=== PATIENT | female | born 1950 | race Caucasian/White ===

== ENCOUNTER → 2017-11-12 | Outpatient (CLI) | payer MEDICARE, OTHER ==
[~2017-11-12] MED LIST: ACYC5CRE5 TOP; ALBU8.5H IH; AMLO2.5T75 PO; AMOX125T10 PO; AMOX875T60 PO; AUG875 PO; BIS5 PO; BRIM5DRO7 OP; CA C1TAB85 PO; CALC-649 PO; CALC500T42 PO; CETI-169 PO; CETI10CA8 PO; CETI1TAB75 PO; CHOL100060 PO; CHOL500062; CLOB15CR22 TP; CYAN25005 SL; CYCL1DRO6 OP; EPIN0.3P15 IM; ESTR0.4513 PO; FEXO1TAB63 PO; FLAX100042 PO; FLUOD OP; FLUT16SP19 NS; GLUC500C29 PO; GLUC750T10 PO; GOLYTE PO; GUAI1TBM PO; LACT1CAP50 PO; LACT1CAP9 PO; LANS15CA38 PO; LANS30CA70 PO; LEVO137T23 PO; LEVO150T78 PO; LOR7.5/325 PO; MAGN400C PO; MECL12.5 PO; MEP50 PO; MEPE50TA29 PO; MET10 PO; MET500 PO; METR45GE7 TP; METXL50 PO; MOMR; MONT10TA PO; MULT-770 PO; MULT-820 PO; NASACORT; NASOCORT; OLO2ODPT OD; OMEG-11 PO; OMEG100032 PO; OND4 PO; ONDA4TAB PO; OXY10 PO; PER PO; PIRO-1 PO; POTA99TA13 PO; PREG150C34 PO; PRO25 PO; SITA100T PO; TACR30OI TP; TOBROD OD; TRIA15OI20 TP; UBID100C9 PO; VAL500 PO; VALS160T20 PO; VALS1TAB96 PO; [UNRECOGNIZED DRUG - CODE] OP; [UNRECOGNIZED DRUG - CODE] OP; [UNRECOGNIZED DRUG - CODE] OU
--- NOTE | 2017-11-16 16:38 | RADIOLOGY IMAGING REPORT ---
FACILITY: [facility] PATIENT NAME: THAI TREVIÑO : [id number] MR: [id number] V: [id number] EXAM DATE: [id number] ORDERING PHYSICIAN: HERO MONROY TECHNOLOGIST: Kathy Green PROCEDURE:BILATERAL DIGITAL SCREENING MAMMOGRAM WITH CAD ASSISTED INTERPRETATION AND 3D BREAST TOMOSYNTHESIS. COMPARISON:Prior mammograms dated 11/11/16, 10/11/15, 08/31/14, 08/25/13 and 08/07/11. INDICATIONS:SCREENING FINDINGS: A small amount of fibroglandular tissue is seen throughout the breasts. The parenchymal pattern has remained stable when allowing for difference in mammographic technique and patient positioning. There is no evidence of malignant appearing mass, malignant appearing calcification or other secondary sign of malignancy in either breast. DIAGNOSTIC CATEGORY 1--NEGATIVE. RECOMMENDATIONS: ROUTINE MAMMOGRAM AND CLINICAL EVALUATION. IMPRESSION: Bi-RADS 1: No significant abnormality is seen. Images were reviewed with R2CAD and 3D breast tomosynthesis. Dictated by: Selena Jimenez M.D. on 11/12/2017 at 11:27 Transcribed by: HELEN on 11/12/2017 at 16:25 Approved by: Selena Jimenez M.D. on 11/16/2017 at 16:37 [facility]
== END ==
LOC: MAMO 02:48
PROVIDERS: ATTEND Family Medicine
DX: Z12.31 Encounter for screening mammogram for malignant neoplasm of breast (principal)
CPT/HCPCS: 77063; G0202; 77067

== ENCOUNTER 2017-11-29 15:15 | Outpatient (RCR) | payer MEDICARE, OTHER ==
--- NOTE | 2017-11-26 07:46 | PT INITIAL EVALUATION ---
MEDICAL DIAGNOSIS: Vertigo TREATMENT DIAGNOSIS: Vertigo DATE OF ONSET: 11/20/16 SUBJECTIVE: Christine is a 67 year-old female presenting to physical therapy following recent onset of vertigo which started when she was receiving a massage on Wednesday11/20/17. Pt reports that since she has had both nausea and vertigo that is fairly severe and will sometimes prevent her from getting out of bed. Vertigo is worse with rising from supine, rolling over in bed to the right side typically, and bending forward. Vertigo is typically also worse in the mornings. Pt is currently taking Zofran for nausea. 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 REHAB PROBLEM LIST: Impaired Bed Mobility Impaired Transfers Decreased Endurance Decreased Balance Decreased Function Decreased ADL's Decreased Mobility Decreased Gait PREVIOUS MEDICAL HISTORY: See EMR OCCUPATION: Retired OBJECTIVE: Posture: Pt has forward hunched posture with increased thoracic kyphosis and forward head. ROM: Dizziness with all cervical movement and nausea. Sensation: Facial nerves intact to light touch. Special Tests: Vertebral artery test (-) B. Dizziness handicap inventory (DHI) Score: 70/100 Gait: Pt uses furniture for stability with ambulation. Balance: Gaze stabilization lateral & A/P increased dizziness. A/P>lateral Hilario Hallpike R (-) but with high vertigo on return from position and associated nausea that no other testing could be performed in session. Further testing to be resumed at follow-up. Other Objective Findings: Pt has a small resting nystagmus and has nystagmus present from return from L lateral tracking. ASSESSMENT: Christine shows signs and symptoms consistent with vertigo with a positional component, likely BPPV, of an undetermined origin. Secondary to high patient irritability full examination was not performed though any vascular contribution or central lesions have been ruled out at this time. Short Term Goals In 2 weeks Christine will have no symptoms of dizziness with change in position upon rising in the morning for improved function with ADL's. In 3 weeks pt will increase DHI to <25/100 for improved functional ambulation and mobility with ADL's. Patient's Goals Decrease dizziness and nausea PLAN: Patient to be seen for Manual Therapy/STM/MET Range of Motion Spinal Stabilization Stretching Neuromuscular Re-ed Posture/Body mechanics Gait Trg/Balance Trg Home Exercise Program Therapeutic Activities 3x/Week for 2 Weeks If you have any questions, comments, or concerns about this report or plan, please contact me at . Thank you, Rika Lopez, PT, DPT, CLT MARIAHD
--- NOTE | 2017-11-30 14:30 | PT PLAN OF CARE ---
Physician: Jennifer Hebert DO Patient is being seen: 2-3x/week Therapist: Rika Lopez PT, DPT and Torin Cedillo PT, DPT Medical Diagnosis: Vertigo Treatment Diagnosis: Vertigo Date of Onset: 11/20/16 Date of Initial Evaluation: 11/24/17 Date patient was last seen: 11/29/17 Number of treatments: 3 Number of cancellations/No shows: 0 INTERVENTIONS: Manual Therapy/STM/MET Range of Motion Spinal Stabilization Stretching Neuromuscular Re-ed Posture/Body mechanics Gait Trg/Balance Trg Home Exercise Program Therapeutic Activities GOALS: In 2 weeks Christine will have no symptoms of dizziness with change in position upon rising in the morning for improved function with ADL's. MET In 3 weeks pt will increase DHI to <25/100 for improved functional ambulation and mobility with ADL's. MET PATIENT'S GOAL: Decrease dizziness and nausea Status of Patient's Goals: MET Patient Compliance: Excellent Prognosis: Good Reasons for discontinuing therapy: This is a discharge note for Christine Waddell. She reports that she is doing really well. She reports that she has not felt any vertigo type symptoms since Wednesday. She states that she continues to perform her HEP once per day with no vertigo like symptoms. She reports that she continues to be cautious with her functional activities, however, she denies any vertigo like symptoms with her functional activities. She demonstrated the following improvements: no signs or symptoms with anterior, posterior, or horizontal canals with the specific maneuvers, return to prior level of function, and reduction of dizziness handicap from 70/100 to 10/100. She is independent on her HEP. She has met all of her goals. As a result, she will be discharged from PT to [facility]. Posture: Pt has forward hunched posture with increased thoracic kyphosis and forward head. ROM: No Dizziness with all cervical movement and nausea. anterior, posterior, and horizontal canals: clear Special Tests: Vertebral artery test (-) B. Dizziness handicap inventory (DHI) Score: 10/100 If you have any questions, please contact us at [phone]. Thank you, Torin Cedillo, PT, DPT [facility]
== END 2017-11-29 18:00 | disposition home or self-care (01) ==
LOC: PT 15:15
PROVIDERS: ATTEND Family Medicine
DX: H81.10 Benign paroxysmal vertigo, unspecified ear (principal); R11.10 Vomiting, unspecified
CPT/HCPCS: 97162

== ENCOUNTER → 2018-01-20 | Outpatient (CLI) | payer MEDICARE, OTHER ==
--- NOTE | 2018-01-20 12:17 | RADIOLOGY IMAGING REPORT ---
FACILITY: [facility] [place] PATIENT NAME: Christine Waddell : 1950 MR: [id number] V: [id number] EXAM DATE: ORDERING PHYSICIAN: HERO MONROY TECHNOLOGIST: Location: [facility] [place] Patient: Christine Waddell : 1950 Visit/Account:[id number] Date of Sevice: 01/20/2018 Exam type: CHEST PA AND LAT History: Cough, difficulty breathing x1 day Comparison: January 27, 2016. Findings: The lungs are free of acute effusions, infiltrates or edema. There is no evidence of a pneumothorax or pneumomediastinum. The cardiac silhouette is normal in size. The trachea is in midline. There i s a gentle S-shaped scoliosis of the thoracolumbar spine. There are surgical clips in right upper qu adrant of abdomen IMPRESSION: 1. No acute cardiopulmonary process is seen Report Dictated By: Selena Jimenez MD at 01/20/2018 12:11 PM Report E-Signed By: Selena Jimenez MD at 01/20/2018 12:13 PM WSN:[email or web address]
== END ==
LOC: RAD 11:40
PROVIDERS: ATTEND Family Medicine
DX: J40 Bronchitis, not specified as acute or chronic (principal)
CPT/HCPCS: 71046

== ENCOUNTER → 2018-03-24 | Outpatient (CLI) | payer MEDICARE, OTHER ==
--- NOTE | 2018-03-24 09:18 | RADIOLOGY IMAGING REPORT ---
FACILITY: [facility] [place] PATIENT NAME: Christine Waddell : 1950 MR: [id number] V: [id number] EXAM DATE: ORDERING PHYSICIAN: JEFFERSON ROJAS TECHNOLOGIST: Location: [facility] [place] Patient: Christine Waddell : 1950 Visit/Account:[id number] Date of Sevice: 03/24/2018 EXAMINATION: MRI Lumbar spine without intravenous contrast HISTORY: Left hip pain. COMPARISON: Lumbar spine TECHNIQUE: Multi-planar, multi-sequence lumbar spine MRI was performed without intravenous contrast administration. FINDINGS: Alignment: Moderate convex leftward curvature. Straightening of the normal lordosis. 3 to 4 mm of ret rolisthesis of L4 over L5. Vertebral marrow signal: Intraosseous hemangioma in the T11 vertebral body. Multiple small Schmorl's nodes and degenerative endplate fatty marrow changes at a few levels. No bone marrow edema. Distal thoracic cord: Negative. Conus: negative, terminates at L1-L2 Cauda equina: Small Tarlov cyst at S2-S3. Otherwise negative. Paravertebral soft tissues: Negative. Visualized abdominal and pelvic structures: Negative. Disc Spaces: Lower thoracic spine: Negative. L1-2: Mild to moderate disc height loss with circumferential disc bulge, facet hypertrophy, and ligam entum flavum thickening. Mild spinal canal stenosis. Mild right and moderate left neural foraminal st enosis. Slightly worsened compared with 07/20/2014. L2-3: Moderate to severe disc height loss with circumferential disc bulge, right greater than left fa cet hypertrophy, and mild ligamentum flavum thickening. Mild spinal canal stenosis. Mild to moderate bilateral neural foraminal stenosis. No significant change. L3-4: Asymmetric right-sided disc height loss and disc bulge. Right greater than left facet hypertrop hy and ligamentum flavum thickening. Moderate spinal canal stenosis. Mild left and moderate to severe right neural foraminal stenosis. No significant change. L4-5: Interval laminectomy. Mild disc height loss with circumferential disc bulge. Severe facet hyper trophy. Mild to moderate spinal canal stenosis. Moderate right and moderately severe left neural fora kleber stenosis. Compared with 07/20/2014 there is a new laminectomy with decreased spinal canal stenosi s and removal of the intraspinal synovial cyst. Neural foraminal stenosis may be slightly worsened on the left. Otherwise no significant change. L5-S1: Mild asymmetric left-sided disc height loss and disc bulge. Severe left and mild right facet h ypertrophy. No significant spinal canal or right neural foraminal stenosis. Moderately severe left ne ural foraminal stenosis. No significant change. IMPRESSION: 1. Multilevel degenerative disc disease and facet hypertrophy with multiple alignment abnormalities a nd multilevel stenosis. 2. Compared with 07/20/2014 there is a new laminectomy at L4-L5 with decreased spinal canal stenosis. N eural foraminal stenosis may be slightly worsened on the left at L4-L5. Degenerative changes at L1-L2 are slightly worsened. 3. Otherwise no significant interval change. Report Dictated By: Will Montanez MD at 03/24/2018 8:58 AM Report E-Signed By: Will Montanez MD at 03/24/2018 9:13 AM WSN:[email or web address]
== END ==
LOC: MRI 07:10
PROVIDERS: ATTEND Neurological Surgery
DX: M47.896 Other spondylosis, lumbar region (principal)
CPT/HCPCS: 72148

== ENCOUNTER → 2018-04-12 | Outpatient (CLI) | payer MEDICARE, OTHER ==
[~2018-04-12] MED LIST changes: +BUPIVACAINE MPF INFIL ONE; +TRIAMCINOLONE ACE 40 MG/ML VL INJ ONE
--- NOTE | 2018-04-12 17:05 | RADIOLOGY IMAGING REPORT ---
FACILITY: [facility] PATIENT NAME: Christine Waddell : 1950 MR: [id number] V: [id number] EXAM DATE: ORDERING PHYSICIAN: FIDEL FLOR TECHNOLOGIST: Location: [facility] Patient: Christine Wdadell : 1950 Visit/Account:[id number] Date of Sevice: 04/12/2018 Exam type: HIP INJECTION PAIN LEFT History: Pain in left hip x2 years, getting worse Comparison: None. Findings: Informed consent was obtained. The patient's left hip was prepped and draped in usual sterile fashio n. Local anesthesia was accomplished with 1% lidocaine. Under fluoroscopic guidance a 22-gauge spin al needle was advanced percutaneously into the anterior aspect of the left hip joint. Several cc of Isovue-200 were injected into the anterior aspect the left hip joint to document intra-articular need le placement. 2 mL of Xylocaine without epinephrine, 2 mL of 0.5% bupivacaine ( preservative-free), and 1.5 mL of Kenalog were then injected into the left hip joint. The procedure was accomplished wit hout apparent complication. The fluoroscopy dose area product was 966.68 micro-Pearson per meter square d IMPRESSION: 1. Successful fluoroscopically guided left hip injection for pain Report Dictated By: Selena Jimenez MD at 04/12/2018 4:57 PM Report E-Signed By: Selena Jimenez MD at 04/12/2018 5:01 PM WSN:[email or web address]
== END ==
LOC: RAD 02:07
PROVIDERS: ATTEND Orthopaedic Surgery
DX: M25.552 Pain in left hip (principal)
CPT/HCPCS: 20610; 77002

== ENCOUNTER → 2018-06-30 | Outpatient (CLI) | payer MEDICARE, OTHER ==
[~2018-06-30] MED LIST changes: +ACET-1862 PO; -BUPIVACAINE MPF INFIL ONE; +ESTR42.5 PV; +POTA99TA6 PO; -TRIAMCINOLONE ACE 40 MG/ML VL INJ ONE
[2018-06-30 08:04] LABS: PLATELET COUNT, AUTOMATED 225 K/uL (150-450)
[2018-06-30 08:35] LABS: LDL CHOLESTEROL 99 mg/dl
== END ==
LOC: LAB 07:40
PROVIDERS: ATTEND Family Medicine
DX: M25.559 Pain in unspecified hip (principal); I10 Essential (primary) hypertension; E87.5 Hyperkalemia; E03.9 Hypothyroidism, unspecified; E11.65 Type 2 diabetes mellitus with hyperglycemia
CPT/HCPCS: 36415; 82040; 82043; 82247; 82310; 82374; 82435; 82465; 82565; 82947; 83036; 83718; 84075; 84132; 84155; 84295; 84443; 84450; 84460; 84478; 84520; 85025

== ENCOUNTER → 2018-07-11 | Outpatient (CLI) | payer MEDICARE, OTHER ==
--- NOTE | 2018-07-11 14:49 | EKG ---
FACILITY: [facility] [place] PATIENT NAME: THAI TREVIÑO : [id number] MR: [id number] V: [id number] EXAM DATE: ORDERING PHYSICIAN: HERO MONROY TECHNOLOGIST: RUBI Test Reason : PRE OP Blood Pressure : / mmHG Vent. Rate : 063 BPM Atrial Rate : 063 BPM P-R Int : 204 ms QRS Dur : 128 ms QT Int : 444 ms P-R-T Axes : 030 -57 050 degrees QTc Int : 454 ms Normal sinus rhythm Left anterior fasicular block Abnormal ECG When compared with ECG of 27-JAN-2016 20:16, No significant change was found Confirmed by Jose Espinoza ([id number]) on 07/11/2018 3:46:12 PM Referred By: PORFIRIO Confirmed By:Jose Rico
== END ==
LOC: LAB 14:15
PROVIDERS: ATTEND Family Medicine
DX: M25.552 Pain in left hip (principal); Z01.818 Encounter for other preprocedural examination
CPT/HCPCS: 81001; 87088; 93005

== ENCOUNTER 2018-08-09 00:43 | Inpatient (IN) | payer MEDICARE, OTHER ==
[2018-08-08 15:05] LABS: INR 0.99
[2018-08-09] VITALS (11 sets, daily range): BP systolic 103–145; BP diastolic 60–79
[~2018-08-09] VITALS: Ht 170.2 cm; Wt 114.3 kg
[~2018-08-09 00:43] MED LIST changes: +LEVO150T72 PO; +LORA-629 PO; +LOSA100T69 PO; +METO-235 PO; +SODI1PAC44 NS
[2018-08-09] MEDS: CELECOXIB 200 MG CAP PO ONE ×2 (06:19→07:01)
[2018-08-09] MEDS ORDERED: NORMOSOL R SOLN(*) 1000 ML BAG 1,000 ML IV PRN ×2 (07:30→10:40)
[2018-08-09] MEDS ORDERED: LIDOCAINE/SOD BICARB 8.4% SYR ID ONE (07:30)
[2018-08-09] MEDS ORDERED: MIDAZOLAM 2 MG/2 ML VIAL IVP PRN (07:30)
[2018-08-09] MEDS ORDERED: ceFAZolin(*) 2GM/D5W 50ML 50 ML IVPB ONE (07:30)
[2018-08-09] MEDS ORDERED: TRANEXAMIC AC 1000 MG/10ML SDV 1,000 MG in DEXTROSE 5% 50 ML BAG 50 ML IV ONE (07:30)
[2018-08-09] MEDS ORDERED: ACETAMINOPHEN 500 MG TAB PO ONE (07:30)
[2018-08-09] MEDS ORDERED: PREGABALIN 150 MG CAPSULE PO ONE (07:30)
[2018-08-09] MEDS ORDERED: cloNIDine EPIDUR INJ 100MCG/ML 40 MCG, ROPIVACAINE 0.5% 20 ML VIAL 25 ML, EPINEPHrine H... INJ ONE (07:30)
[2018-08-09] MEDS ORDERED: PROPOFOL EMUL(*) 10MG/ML 20 ML 80 ML ONE (07:51)
[2018-08-09] MEDS ORDERED: fentaNYL CITR 100 MCG/2 ML AMP ONE ×3 (07:51→12:18)
[2018-08-09] MEDS ORDERED: LIDOCAINE 2% IV 100 MG/5ML SYR ONE (07:54)
--- NOTE | 2018-08-09 08:11 | LEVENE H&P ---
DATE OF ADMISSION: August 09, 2018 IDENTIFICATION/CHIEF COMPLAINT The patient is a 68-year-old woman with a chief complaint of left hip pain. HISTORY OF PRESENT ILLNESS The patient has a longstanding history of hip arthritis progressively painful and debilitating, refractory to conservative care. Surgery is indicated to relieve symptoms after failure of nonoperative measures. PAST MEDICAL HISTORY 1. Hypertension, controlled on medication. 2. Sleep apnea, controlled with CPAP. 3. Type 2 diabetes. PAST SURGICAL HISTORY 1. Partial thyroidectomy. 2. Right knee scope. 3. Pneumonia. 4. Hospitalization. 5. Bladder repair. 6. Hemorrhage from hysterectomy. 7. Cholecystectomy. 8. Rib removed. 9. Foot operation. 10. Cartilage removal from the right knee. ALLERGIES MORPHINE, NEXIUM and CHLORINE BLEACH. CURRENT MEDICATIONS 1. Amlodipine 2.5 mg p.o. every day. 2. Metformin 500 mg x5 pills daily. 3. Meclizine 12.5 mg as needed. 4. Lyrica 150 mg p.o. every day. 5. Januvia 100 mg p.o. every day. 6. Losartan 100 mg p.o. every day. 7. Prevacid 30 mg p.o. every day. 8. Synthroid 150 micrograms p.o. every day. SOCIAL HISTORY Negative for tobacco. She smoked until 1996, about 20 years pack/day. She denies alcohol use or abuse. REVIEW OF SYSTEMS Noncontributory. PHYSICAL EXAMINATION GENERAL: This is a healthy female. HEENT: Normocephalic, atraumatic. NECK: Supple. LUNGS: Clear. HEART: Regular. ABDOMEN: Soft. ORTHOPEDIC EXAMINATION Left hip is very stiff with limits if flexion and rotation. Hip girdle strength is normal. Skin envelope is intact. Calves are nontender. Neurovascular function is intact. Radiographs demonstrate end-stage hip arthritis. ASSESSMENT Left hip end-stage degenerative joint disease (DJD) progressively painful and debilitating, refractory to conservative care. PLAN Per patient request, we are going to proceed with total hip arthroplasty. The nature of this procedure, the risks, benefits, the anticipated rehabilitative course were reviewed. Risks of the procedure include but are not limited to , major medical or anesthetic complication, infection, neurovascular injury, blood transfusion, stiffness, scarring, tendon rupture, instability, leg length discrepancy, implant loosening, migration or failure, persistent or recurrent pain, need for additional surgery and other unforeseen. She understands and wishes to proceed. A signed permit is placed in the chart. No guarantees are given or implied. PATI
[2018-08-09] MEDS ORDERED: ONDANSETRON 4 MG/2 ML VIAL ONE (08:25)
[2018-08-09] MEDS ORDERED: DEXAMETHASONE SOD PHOS 10MG/ML ONE (08:25)
[2018-08-09] MEDS ORDERED: KETAMINE HCL 200 MG/20 ML MDV ONE (09:01)
[2018-08-09] MEDS ORDERED: PROPOFOL EMUL(*) 10MG/ML 20 ML 40 ML ONE ×2 (09:06→09:35)
[2018-08-09] MEDS ORDERED: LACTATED RINGER 3000 ML BAG IR ONE (09:32)
[2018-08-09] MEDS ORDERED: NS 0.9% IRRIGATION 1000ML PLCT IR ONE (09:32)
[2018-08-09] MEDS ORDERED: VANCOMYCIN 1 GM VIAL ONE (09:45)
[2018-08-09] MEDS ORDERED: ACETAMINOPHEN 325 MG TAB PO PRN (10:40)
[2018-08-09] MEDS ORDERED: ZOLPIDEM TARTRATE 5 MG TAB PO PRN (10:40)
[2018-08-09] MEDS ORDERED: diphenhydrAMINE 50 MG/ML VIAL IVP PRN (10:40)
[2018-08-09] MEDS ORDERED: FLUSH 10 ML SYR IVP PRN (10:40)
[2018-08-09] MEDS ORDERED: BISACODYL 10 MG SUPP PR PRN (10:40)
[2018-08-09] MEDS ORDERED: diphenhydrAMINE 25 MG CAP PO PRN (10:40)
[2018-08-09] MEDS ORDERED: BENZOCAINE/MENTHOL 1 EACH LOZG PO PRN (10:40)
[2018-08-09] MEDS ORDERED: MAGNESIUM HYDROXIDE* 30ML UDCP PO PRN (10:40)
--- NOTE | 2018-08-09 11:22 | RADIOLOGY IMAGING REPORT ---
FACILITY: [facility] PATIENT NAME: Christine Waddell : 1950 MR: [id number] V: [id number] EXAM DATE: ORDERING PHYSICIAN: MAURISIO MARTIN TECHNOLOGIST: Location: [facility] [place] Patient: Christine Waddell : 1950 Visit/Account:[id number] Date of Sevice: 08/09/2018 PELVIS History: Left hip replacement. Comparison study: None. Findings: There is diffuse osteopenia but no acute fracture. There has been a recent left hip replacement. IMPRESSION: 1. Status post recent left hip replacement. No findings of a fracture. Report Dictated By: Kaleb Sams MD at 08/09/2018 11:17 AM Report E-Signed By: Kaleb Sams MD at 08/09/2018 11:18 AM WSN:[email or web address]
[2018-08-09] MEDS ORDERED: NORMOSOL R SOLN(*) 1000 ML BAG 1,000 ML IV ONE (11:25)
--- NOTE | 2018-08-09 13:43 | Hospitalist Consultation ---
History of Present Illness Requesting Physician Dr. Hernandez Reason for Consult Medical Management Chief Complaint s/p left hip replacement History of Present Illness She was admitted s/p left hip replacement. It is reported the surgery went well and without complication. History Problems: (1) KARLEY (obstructive sleep apnea) Status: Chronic (2) Type 2 diabetes mellitus Status: Chronic (3) Seasonal allergies Status: Chronic (4) Hypothyroidism Status: Chronic (5) GERD (gastroesophageal reflux disease) Status: Chronic (6) Hypertension Status: Chronic Home Meds Active Scripts Estrogens, Conjugated (Premarin) 0.625 Mg/Gram Cream.appl, 0.5 GM PV DIRECTED for 30 Days, #1 TUBE 6 Refills Apply 0.5gm PV QHS twice weekly Prov:ALEXIS TORRES MD 08/02/18 Reported Medications Sodium Chloride/Sodium Bicarb (NEMetaversum SINUS RINSE KIT) 1 Each Packet, 1 EACH NS 2XW, PACKET 08/02/18 Losartan Potassium (LOSARTAN POTASSIUM) 100 Mg Tablet, 100 MG PO QDAY 08/02/18 Metoprolol Succinate (TOPROL XL) 100 Mg Tab.er.24h, 1 TAB PO QDAY, TAB 08/02/18 Levothyroxine Sodium (SYNTHROID) 150 Mcg Tablet, 150 MCG PO QDAY 08/02/18 Loratadine (LORATADINE) 10 Mg Tablet, 10 MG PO DAILY 08/02/18 Acetaminophen (ARTHRITIS PAIN RELIEVER) 650 Mg Tablet.er, 2 TAB PO BID 05/16/18 Lactobacillus Combo No.10 (PROBIOTIC) 1 Each Capsule, 1 EACH PO DAILY, CAPSULE 10/14/17 Ketotifen Fumarate (ALAWAY) 10 Ml Drops, 1 DROP OP DAILY 10/14/17 Montelukast Sodium (SINGULAIR) 10 Mg Tablet, 1 TAB PO QDAY, TAB 10/14/17 Fluorometholone (FLUOROMETHOLONE) 5 Ml Drops.susp, 5 ML OP TID 10/14/17 Clobetasol Propionate/Emoll (CLOBETASOL EMOLLIENT 0.05% CRM) 15 Gm Cream..g., 0 TP BID 10/14/17 Cyclosporine (RESTASIS) 1 Each Droperette, 1 EACH OP BID 09/24/16 Sitagliptin Phosphate (JANUVIA) 100 Mg Tablet, 100 MG PO QDAY 09/24/16 Amlodipine Besylate (NORVASC) 2.5 Mg Tablet, 1 TAB PO QDAY, TAB 08/28/16 Meclizine Hcl (MECLIZINE HCL) 12.5 Mg Tablet, 12.5 MG PO PRN PRN for NAUSEA 08/28/16 Epinephrine (EPIPEN 2-WOLFGANG) Unknown Strength Pen.injctr, 0.3 MG IM PRN 08/28/16 Ondansetron Hcl (Zofran) 4 Mg Tab, 4 MG PO Q6-8H PRN for NAUSEA, #24 1 Refill 11/12/11 Mometasone Furoate (Nasonex) 17 Gm [place], 0 NA QODAY, 0 Refills SPRAY 2 SPRAYS IN EACH NOSTRIL 11/06/11 Lansoprazole (Prevacid) 30 Mg Capsule.dr, 30 MG PO QDAY, 0 Refills 11/06/11 Metformin Hcl (Glucophage) 500 Mg Tab, 500 MG PO 5XD, 0 Refills 11/06/11 Pregabalin (Lyrica) 150 Mg Capsule, 150 MG PO QHS, 0 Refills 11/06/11 Discontinued Reported Medications Potassium Gluconate (POTASSIUM) 99 Mg Tablet, 1 TAB PO QDAY 05/16/18 Cholecalciferol (Vitamin D3) (Vitamin D3) 5,000 Unit Tab.rapdis 10/14/17 [place]-3 Fatty Acids (OMEGA-3) 1,000 Mg Capsule, 1000 MG PO, CAPSULE 10/14/17 Ubidecarenone (CO Q-10) 100 Mg Capsule, 100 MG PO, CAPSULE 10/14/17 Cetirizine Hcl (CETIRIZINE HCL) 10 Mg Tablet, 10 MG PO QDAY, TAB 10/14/17 Cyanocobalamin (Vitamin B-12) (B-12) 2,500 Mcg Tab.subl, 2500 MCG SL 10/14/17 Olopatadine (PATADAY) 0.05 Ml Soln, 0.05 ML OD DAILY PRN for ALLERGY SYMPTOMS 09/24/16 Levothyroxine Sodium (LEVOTHYROXINE SODIUM) 150 Mcg Tablet, 1 TAB PO QDAY 08/28/16 Piroxicam (Feldene) 20 Mg Capsule, 20 MG PO DAILY, 0 Refills 11/06/11 Metoprolol Succinate (Toprol Xl) 50 Mg Tabcr, 2 TAB PO QDAY, 0 Refills 11/06/11 Valsartan (Diovan) 160 Mg Tablet, 160 MG PO QAM, 0 Refills 11/06/11 Allergies: Coded Allergies: codeine (Verified Allergy, Severe, NAUSEA/VOMITING, 10/20/10) esomeprazole (Verified Allergy, Severe, HIVES, 10/20/10) levofloxacin (Verified Allergy, Severe, HANDS SWELL, JOINT PAIN, 10/20/10) morphine (Verified Allergy, Severe, RAISES HER TEMPERATURE DRASTICALLY, 10/20/10) INCREASED TEMPERATURE alcohol (Verified Allergy, Intermediate, SWELLING, 08/28/16) Face and lips swell, turn red and hurt. tomato (Verified Allergy, Intermediate, "GIVES ME COLD SORES", 11/06/11) adhesive tape (Verified Allergy, Mild, 11/06/11) scopolamine (Verified Allergy, Unknown, NAUSEA/VOMITING, 08/28/16) erythromycin base (Verified Adverse Reaction, Intermediate, NAUSEA, 10/20/10) celecoxib (Verified Adverse Reaction, Mild, NAUSEA/VOMITING, 08/09/18) Uncoded Allergies: chlorine bleach (Allergy, Intermediate, SWELLING, 08/28/16) Face and neck swell, eyes turn red Patient History: FH: COPD (chronic obstructive pulmonary disease) MOTHER, , Age:87 FH: arthritis MOTHER, , Age:87 FH: atrial fibrillation BROTHER OR SISTER FH: diabetes mellitus FATHER, , Age:77 MOTHER, , Age:87 BROTHER OR SISTER FH: neuropathy MOTHER, , Age:87 FH: scoliosis MOTHER, , Age:87 FHx: pneumonia Hx Smoking: Yes (1.5 PPD FOR 20 YRS) Smoking Status: Former Smoker Exposure to Second Hand Smoke?: No When Quit Tobacco?: 1996 Caffeine Intake: Coffee, Tea Caffeine/Cups Per Day: 20 oz. TEA OR COFFEE PER DAY Hx Alcohol Use: No Hx Substance Use Disorder: No Social Drug Use: Never Review of Systems All Systems Reviewed/Normal: Yes, Except as Noted Exam Vital Signs Vital Signs Date Time Temp Pulse Resp B/P (MAP) Pulse Ox O2 Delivery O2 Flow Rate FiO2 08/09/18 13:15 59 18 130/70 (90) 97 Nasal Cannula 2.0 08/09/18 13:00 96.7 General Appearance: Alert, Awake, No Acute Distress, Afebrile Neuro: No Gross deficits Cardiovascular: Regular Rate and Rhythm Respiratory: No Respiratory Distress, Clear to Auscultation GI: Abd Soft and Non-Tender Extremities: No Edema Psych: Alert & Oriented X3, Appropriate Mood & Affect Assessment and Plan Problems: (1) Status post left hip replacement Status: Acute Assessment & Plan: She is on Xarelto for DVT prophylaxis. She does not personally have a history of DVT, but her mother had a spontaneous DVT. (2) Type 2 diabetes mellitus Status: Chronic Assessment & Plan: She is on chronic treatment with Metformin and Januvia. These are being held at this time. She was placed on AC/HS blood glucose monitoring and SSI#2, and ADA diet. (3) Hypertension Status: Chronic Assessment & Plan: She is on chronic treatment with Toprol, Losartan, and Amlodipine. These have been restarted with hold parameters. (4) GERD (gastroesophageal reflux disease) Status: Chronic Assessment & Plan: She is on chronic treatment with Prevacid. (5) Hypothyroidism Status: Chronic Assessment & Plan: She is on chronic treatment with Synthroid. She will use her own prescription during admission. (6) KARLEY (obstructive sleep apnea) Status: Chronic Assessment & Plan: She is on chronic treatment with CPAP. She brought her own machine to use during admission. (7) Seasonal allergies Status: Chronic Assessment & Plan: She is on chronic treatment with Singulair and Loratadine. 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
[2018-08-09] MEDS: DOCUSATE SODIUM 100 MG CAP PO SCH ×2 (13:59→21:05)
[2018-08-09] MEDS: APAP/HYDROCODONE 325/7.5 TAB PO PRN ×3 (13:59→21:19)
[2018-08-09] MEDS: PROMETHAZINE 25 MG/ML 1 ML AMP IVP PRN ×2 (14:46→21:05)
[2018-08-09] MEDS: ceFAZolin(*) 1 GM VIAL 1 GM in NS(*) 0.9% 100 ML ADDVANT BAG 100 ML IVPB SCH ×2 (15:47→23:57)
[2018-08-09] MEDS: INSULIN HUM LISPRO 100 UN/ML 3 ML VIAL SUBQ PRN ×2 (17:09→21:19)
--- NOTE | 2018-08-09 19:29 | OPERATIVE REPORT 1 ---
EVENT DATE: August 09, 2018 SURGEON: Trevor Hernandez MD ANESTHESIOLOGIST: Sharon Oscar MD ANESTHESIA: General plus spinal. CORPORATE COORDINATOR: KEELEY Whiting PREOPERATIVE DIAGNOSIS Left hip degenerative joint disease. POSTOPERATIVE DIAGNOSIS Left hip degenerative joint disease. PROCEDURE PERFORMED Left total hip arthroplasty. ESTIMATED BLOOD LOSS 300 mL DRAINS None. SPECIMENS None. COMPLICATIONS None apparent. IMPLANTS [place] Triathlon system with a SecurFit Max 132, size 8 stem, a Biolox Delta Ceramic C-Taper femoral head 36 mm, +7.5 neck length, a Trident PSL GARCIA cluster acetabular shell size 48 with a Trident X3 zero-degree polyethylene liner to accommodate a 36 mm head. INDICATIONS Christine has intractable left hip pain related to arthritis. Surgery is indicated to relieve symptoms after failure of nonoperative measures. DESCRIPTION OF PROCEDURE Patient was taken to the operating room, placed supine on the operating table. General anesthesia induced after spinal block was administered by the anesthesiologist. Antibiotics and TXA are administered IV. She is positioned in the right lateral decubitus on a well-padded pegboard. Pelvis is secured in a vertical position. All bony prominences and superficial nerves are well padded. The left hip girdle and lower extremity are prepped and draped in the usual sterile fashion for hip arthroplasty. A standard posterolateral incision is made, carried down through the skin and fat to the deep fascia. Fascia is incised over the tip of the trochanter, extended distally in line with the femur, proximally in line with the yuri fibers. Yuri fibers are split bluntly. Trochanteric bursa is excised. Deep Charnley retractors are placed. Interval between the abductor and external rotator is identified, and the abductor mechanism is protected with a blunt Hohmann. An L capsulotomy/tenotomy is made with the horizontal limb just above the piriformis, and then the capsule and external rotators are peeled off the posterior aspect of the femur, tagged for later anatomic reattachment at the end of the procedure. The femoral head is dislocated. Arthritic change is noted. A 1.5 cm neck cut is made consistent with preoperative templating. Femoral head is extracted. Femur is translocated anteriorly. Macey-acetabular retractors are placed with the tips down on bone to avoid critical neurovascular structures. Labrum and pulvinar are excised. A 44 mm reamer is used to medialize through the true medial wall of the acetabulum. This is expanded in 2 mm increments up to 48. The 48 trial has nice [id number] fit. Good bleeding bone is located in the base of the socket. The actual shell is selected. A 49 reamer is used to open the floor of the acetabulum to accommodate the raised rim liner. The actual shell is impacted in approximately 45 degrees of lateral opening and 15 degrees to 20 degrees of anteversion using the extracorporeal guide, internal bony landmarks, and the transverse acetabular ligament to guide socket placement. Rock-solid fixation is achieved. No adjuvant fixation felt to be needed. The shell is lavaged and dried, and the liner is locked into the shell. Attention is turned to femoral preparation. Superior neck is resected with a cookUnbounce cutter. Mateo awl finds the canal. Tapered reaming is performed to 8 where nice endosteal contact is obtained. Broaching starts with 5 and works up to 8, taking care to lateralize and follow the ramona version of the calcar to about 12 degrees anteversion. The 8 has good stability, fit, and fill. Trial reduction is performed off this. Good jehovah's witness of the limb length and stability are achievable with this neck and stem combination. The broach is then extracted, and the actual implant is impacted. It seats at the same height. Trial reduction is performed with various neck lengths. The +7.5 is felt to be optimal for jehovah's witness of the limb length, stability, and soft tissue tension. Hennessy taper is lavaged and dried. The Biolox head is impacted onto the Hennessy taper. The joint is reduced. Capsulotomy and tenotomy are reapproximated anatomically through drill holes in the posterolateral femur with the #2 Vicryl suture. Wound is copiously lavaged again. Pain cocktail infiltrated throughout the wound. A gram of vancomycin powder was placed as prophylaxis. Deep fascia closed with #2 Ethibond distally and #2 Vicryl proximally. Subcutaneous tissue is closed with 3-0 Vicryl, skin with surgical levar. Xeroform and 4 x 4's applied as a dry, sterile dressing. Hip wrap. Patient is rolled supine. Abduction pillow is placed. She is awakened from anesthesia and taken to the recovery room in stable condition having tolerated the procedure well. Plan is for standard AMBAR rehab protocol, posterior hip precautions, weightbearing as tolerated. MTDD
[2018-08-09] MEDS: cycloSPORINE 0.05% EMUL 1 DROP OU SCH (21:00)
[2018-08-09] MEDS: PREGABALIN 150 MG CAPSULE PO SCH (21:05)
[2018-08-10] VITALS: BP 106/54
[2018-08-10 03:00] VITALS: BP 98/54
[2018-08-10 04:00] VITALS: BP 109/54
[2018-08-10] MEDS: PROMETHAZINE 25 MG/ML 1 ML AMP IVP PRN ×3 (04:46→21:50)
[2018-08-10] MEDS: APAP/HYDROCODONE 325/7.5 TAB PO PRN ×4 (04:46→21:50)
[2018-08-10] MEDS: LEVOTHYROXINE SODIUM 150 MCG TAB PO SCH (05:25)
[2018-08-10] MEDS ORDERED: LEVOTHYROXINE SOD 0.150 MG TAB PO SCH (06:00)
[2018-08-10 07:56] VITALS: BP 99/61
[2018-08-10] MEDS: LOSARTAN POTASSIUM 50 MG TAB PO SCH (08:44)
[2018-08-10] MEDS: amLODIPine BESYL(*) 2.5 MG TAB PO SCH (08:44)
[2018-08-10] MEDS: cycloSPORINE 0.05% EMUL 1 DROP OU SCH ×2 (08:46→20:18)
[2018-08-10] MEDS: RIVAROXABAN 10 MG TAB PO SCH (08:46)
[2018-08-10] MEDS: MONTELUKAST SODIUM 10 MG TAB PO SCH (08:46)
[2018-08-10] MEDS: LORATADINE 10 MG TAB PO SCH (08:46)
[2018-08-10] MEDS: DOCUSATE SODIUM 100 MG CAP PO SCH ×2 (08:46→20:18)
[2018-08-10] MEDS: METOPROLOL SUCC XL 50 MG TABCR 50 MG TAB.ER.24H PO SCH (08:47)
[2018-08-10] MEDS: ceFAZolin(*) 1 GM VIAL 1 GM in NS(*) 0.9% 100 ML ADDVANT BAG 100 ML IVPB SCH (08:47)
[2018-08-10] MEDS: metFORMIN HCL 500 MG TAB PO SCH ×3 (09:16→17:20)
--- NOTE | 2018-08-10 11:20 | Hospitalist Progress Note ---
Subjective Progress Notes Subjective She has no complaints this morning. She had no acute events overnight. Patient Complains of: Cardiovascular: No: Chest Pain Respiratory: No: Shortness of Breath Physical Exam Vital Signs Date Time Temp Pulse Resp B/P (MAP) Pulse Ox O2 Delivery O2 Flow Rate FiO2 08/10/18 07:58 93 Nasal Cannula 2.0 08/10/18 07:56 97.6 59 16 99/61 (74) 08/10/18 04:00 40.0 Intake and Output 08/10/18 01:00 Intake Total 6539 ml Output Total 250 ml Balance 6289 ml Intake Oral 1320 ml IV Total 2719 ml Other 2500 ml Output Emesis 100 ml Estimated Blood Loss 150 ml # Voids 3 # Emeses 1 General Appearance: Alert, Awake, No Acute Distress, Afebrile Neuro: No Gross deficits Cardiovascular: Regular Rate and Rhythm Respiratory: No Respiratory Distress, Clear to Auscultation GI: Soft and Non-Tender Psych: Alert & Oriented X3, Appropriate Mood & Affect Assessment and Plan Problems: (1) Status post left hip replacement Status: Acute Assessment & Plan: She is on Xarelto for DVT prophylaxis. She does not personally have a history of DVT, but her mother had a spontaneous DVT. (2) Type 2 diabetes mellitus Status: Chronic Assessment & Plan: She is on chronic treatment with Metformin and Januvia. Metformin will be restarted today. She was placed on AC/HS blood glucose monitoring and SSI#2, and ADA diet. (3) Hypertension Status: Chronic Assessment & Plan: She is on chronic treatment with Toprol, Losartan, and Amlodipine. These have been restarted with hold parameters. (4) GERD (gastroesophageal reflux disease) Status: Chronic Assessment & Plan: She is on chronic treatment with Prevacid. (5) Hypothyroidism Status: Chronic Assessment & Plan: She is on chronic treatment with Synthroid. She will use her own prescription during admission. (6) KARLEY (obstructive sleep apnea) Status: Chronic Assessment & Plan: She is on chronic treatment with CPAP. She brought her own machine to use during admission, but she did require BiPAP to be used overnight. Recommended patient go to PCP after discharge for followup of KARLEY. (7) Seasonal allergies Status: Chronic Assessment & Plan: She is on chronic treatment with Singulair and Loratadine. Exam Sepsis Risk: No Definite Risk Problem Qualifiers (1) Hypertension: Hypertension type: essential hypertension Qualified Codes: I10 - Essential (primary) hypertension PRISCILLA WEBSTERP Aug 10, 2018 11:20
[2018-08-10 13:02] VITALS: Ht 170.2 cm; Wt 114.3 kg
[2018-08-10 14:55] VITALS: BP 119/60
[2018-08-10] MEDS: LANSOPRAZOLE 15 MG CAPCR PO SCH (17:12)
[2018-08-10 19:20] VITALS: BP 116/56
[2018-08-10] MEDS: PREGABALIN 150 MG CAPSULE PO SCH (20:18)
[2018-08-10] MEDS: DIAZEPAM 5 MG TAB PO PRN (22:54)
[2018-08-10] MEDS: PROMETHAZINE HCL 25 MG TAB PO PRN (23:38)
[2018-08-11] MEDS: APAP/HYDROCODONE 325/7.5 TAB PO PRN ×4 (00:12→18:35)
[2018-08-11 00:53] VITALS: BP 115/54
[2018-08-11] MEDS: LEVOTHYROXINE SODIUM 150 MCG TAB PO SCH (05:37)
[2018-08-11] MEDS: PROMETHAZINE HCL 25 MG TAB PO PRN ×3 (05:38→17:57)
[2018-08-11 07:30] VITALS: BP 114/54
[2018-08-11] MEDS: LORATADINE 10 MG TAB PO SCH (08:49)
[2018-08-11] MEDS: RIVAROXABAN 10 MG TAB PO SCH (08:49)
[2018-08-11] MEDS: MONTELUKAST SODIUM 10 MG TAB PO SCH (08:49)
[2018-08-11] MEDS: metFORMIN HCL 500 MG TAB PO SCH ×3 (08:49→20:45)
[2018-08-11] MEDS: cycloSPORINE 0.05% EMUL 1 DROP OU SCH ×2 (08:49→20:45)
[2018-08-11] MEDS: DOCUSATE SODIUM 100 MG CAP PO SCH ×2 (08:49→20:45)
[2018-08-11] MEDS: LANSOPRAZOLE 15 MG CAPCR PO SCH ×2 (08:49→08:53)
[2018-08-11] MEDS: amLODIPine BESYL(*) 2.5 MG TAB PO SCH (08:50)
[2018-08-11] MEDS: METOPROLOL SUCC XL 50 MG TABCR 50 MG TAB.ER.24H PO SCH (08:50)
[2018-08-11] MEDS: LOSARTAN POTASSIUM 50 MG TAB PO SCH (08:50)
--- NOTE | 2018-08-11 09:38 | Hospitalist Progress Note ---
Subjective Progress Notes Subjective She has no complaints this morning. She had no acute events overnight. Patient Complains of: Cardiovascular: No: Chest Pain Respiratory: No: Shortness of Breath Physical Exam Vital Signs Date Time Temp Pulse Resp B/P (MAP) Pulse Ox O2 Delivery O2 Flow Rate FiO2 08/11/18 07:40 83 08/11/18 07:30 97.8 70 16 114/54 (74) Room Air 08/11/18 05:38 40.0 08/11/18 00:53 2.0 Intake and Output 08/11/18 07:00 Intake Total 1600 ml Balance 1600 ml Intake Oral 1600 ml # Voids 6 General Appearance: Alert, Awake, No Acute Distress, Afebrile Neuro: No Gross deficits Cardiovascular: Regular Rate and Rhythm Respiratory: No Respiratory Distress, Clear to Auscultation GI: Soft and Non-Tender Psych: Alert & Oriented X3, Appropriate Mood & Affect Assessment and Plan Problems: (1) Status post left hip replacement Status: Acute Assessment & Plan: She is on Xarelto for DVT prophylaxis. She does not personally have a history of DVT, but her mother had a spontaneous DVT. (2) Type 2 diabetes mellitus Status: Chronic Assessment & Plan: She is on chronic treatment with Metformin and Januvia. Metformin will be restarted today. She was placed on AC/HS blood glucose monitoring and SSI#2, and ADA diet. (3) Hypertension Status: Chronic Assessment & Plan: She is on chronic treatment with Toprol, Losartan, and Amlodipine. These have been restarted with hold parameters. (4) GERD (gastroesophageal reflux disease) Status: Chronic Assessment & Plan: She is on chronic treatment with Prevacid. (5) Hypothyroidism Status: Chronic Assessment & Plan: She is on chronic treatment with Synthroid. She will use her own prescription during admission. (6) KARLEY (obstructive sleep apnea) Status: Chronic Assessment & Plan: She is on chronic treatment with CPAP. She brought her own machine to use during admission, but she did require BiPAP to be used overnight. Recommended patient go to PCP after discharge for followup of KARLEY. (7) Seasonal allergies Status: Chronic Assessment & Plan: She is on chronic treatment with Singulair and Loratadine. Exam Sepsis Risk: No Definite Risk Problem Qualifiers (1) Hypertension: Hypertension type: essential hypertension Qualified Codes: I10 - Essential (primary) hypertension PRISCILLA WEBSTER Aug 11, 2018 09:38
[2018-08-11 11:41] VITALS: BP 124/71
[2018-08-11] MEDS: DIAZEPAM 5 MG TAB PO PRN ×2 (11:49→18:01)
[2018-08-11 14:56] VITALS: BP 130/61
[2018-08-11] MEDS ORDERED: LANSOPRAZOLE 15 MG CAPCR PO SCH (17:00)
[2018-08-11 20:37] VITALS: BP 110/55
[2018-08-11] MEDS: PREGABALIN 150 MG CAPSULE PO SCH (20:45)
[2018-08-12] MEDS: PROMETHAZINE HCL 25 MG TAB PO PRN ×2 (00:31→09:04)
[2018-08-12] MEDS: APAP/HYDROCODONE 325/7.5 TAB PO PRN ×2 (00:51→09:21)
[2018-08-12 00:53] VITALS: BP 133/66
[2018-08-12] MEDS: LEVOTHYROXINE SODIUM 150 MCG TAB PO SCH (05:20)
[2018-08-12 07:48] VITALS: BP 131/63
[2018-08-12] MEDS ORDERED: metFORMIN HCL 500 MG TAB PO SCH (08:00)
[2018-08-12] MEDS: DOCUSATE SODIUM 100 MG CAP PO SCH (08:39)
[2018-08-12] MEDS: cycloSPORINE 0.05% EMUL 1 DROP OU SCH (08:39)
[2018-08-12] MEDS: LORATADINE 10 MG TAB PO SCH (08:40)
[2018-08-12] MEDS: RIVAROXABAN 10 MG TAB PO SCH (08:40)
[2018-08-12] MEDS: MONTELUKAST SODIUM 10 MG TAB PO SCH (08:40)
[2018-08-12] MEDS: amLODIPine BESYL(*) 2.5 MG TAB PO SCH (08:41)
[2018-08-12] MEDS: METOPROLOL SUCC XL 50 MG TABCR 50 MG TAB.ER.24H PO SCH (08:41)
[2018-08-12] MEDS: LOSARTAN POTASSIUM 50 MG TAB PO SCH (08:41)
[2018-08-12] MEDS: DIAZEPAM 5 MG TAB PO PRN (09:04)
--- NOTE | 2018-08-12 10:11 | Hospitalist Progress Note ---
Subjective Progress Notes Subjective She has no complaints this morning. She had no acute events overnight. Patient Complains of: Cardiovascular: No: Chest Pain Respiratory: No: Shortness of Breath Physical Exam Vital Signs Date Time Temp Pulse Resp B/P (MAP) Pulse Ox O2 Delivery O2 Flow Rate FiO2 08/12/18 09:19 85 08/12/18 09:19 Nasal Cannula 1.0 08/12/18 07:48 98.7 80 14 131/63 (85) 08/12/18 05:42 40.0 Intake and Output 08/12/18 07:00 Intake Total 1377 ml Balance 1377 ml Intake Oral 1377 ml # Voids 6 General Appearance: Alert, Awake, No Acute Distress, Afebrile Neuro: No Gross deficits Cardiovascular: Regular Rate and Rhythm Respiratory: No Respiratory Distress, Clear to Auscultation GI: Soft and Non-Tender Psych: Alert & Oriented X3, Appropriate Mood & Affect Assessment and Plan Problems: (1) Status post left hip replacement Status: Acute Assessment & Plan: She is on Xarelto for DVT prophylaxis. She does not personally have a history of DVT, but her mother had a spontaneous DVT. She plans to go to [facility] for further rehab. (2) Type 2 diabetes mellitus Status: Chronic Assessment & Plan: She is on chronic treatment with Metformin and Januvia. Metformin was restarted, but Januvia has still been held secondary to sufficient blood sugars. She is on BID blood glucose monitoring and SSI#2, and ADA diet. (3) Hypertension Status: Chronic Assessment & Plan: She is on chronic treatment with Toprol, Losartan, and Amlodipine. These were restarted with hold parameters. (4) GERD (gastroesophageal reflux disease) Status: Chronic Assessment & Plan: She is on chronic treatment with Prevacid. (5) Hypothyroidism Status: Chronic Assessment & Plan: She is on chronic treatment with Synthroid. She will use her own prescription during admission. (6) KARLEY (obstructive sleep apnea) Status: Chronic Assessment & Plan: She is on chronic treatment with CPAP. She brought her own machine to use during admission, but she did require BiPAP to be used overnight. Recommended patient go to PCP after discharge for followup of KARLEY. Last sleep study 2016. (7) Seasonal allergies Status: Chronic Assessment & Plan: She is on chronic treatment with Singulair and Loratadine. Exam Sepsis Risk: No Definite Risk Problem Qualifiers (1) Hypertension: Hypertension type: essential hypertension Qualified Codes: I10 - Essential (primary) hypertension PRISCILLA WEBSTER Aug 12, 2018 10:11
[2018-08-12] MEDS ORDERED: CHOL500025 PO (18:40)
[2018-08-12] MEDS ORDERED: OMEG-96 PO (18:42)
[2018-08-12] MEDS ORDERED: POTA99TA6 PO (18:42)
[2018-08-12] MEDS ORDERED: UBID100C9 PO (18:43)
[2018-08-12] MEDS ORDERED: CYAN50008 (18:44)
[2018-08-12] MEDS ORDERED: PIRO-1 PO (18:46)
== END 2018-08-12 12:39 | DRG 470 ==
LOC: OR 00:43 → MED 12:55
PROVIDERS: ADMIT Orthopaedic Surgery; ATTEND Orthopaedic Surgery
PROC: 5A09357 Assistance with Respiratory Ventilation, Less than 24 Consecutive Hours, Continuous Positive Airway Pressure (ICD-10-PCS; 2018-08-09)
PROC: 0SRB04Z Replacement of Left Hip Joint with Ceramic on Polyethylene Synthetic Substitute, Open Approach (ICD-10-PCS; principal; 2018-08-09 08:09)
DX: M16.12 Unilateral primary osteoarthritis, left hip (principal); I10 Essential (primary) hypertension; E11.9 Type 2 diabetes mellitus without complications; G47.33 Obstructive sleep apnea (adult) (pediatric); K21.9 Gastro-esophageal reflux disease without esophagitis; E66.9 Obesity, unspecified; E78.5 Hyperlipidemia, unspecified; G47.30 Sleep apnea, unspecified; E89.0 Postprocedural hypothyroidism; Z90.710 Acquired absence of both cervix and uterus; Z90.49 Acquired absence of other specified parts of digestive tract; Z88.5 Allergy status to narcotic agent; Z88.8 Allergy status to other drugs, medicaments and biological substances; Z79.84 Long term (current) use of oral hypoglycemic drugs; Z87.891 Personal history of nicotine dependence; Z68.39 Body mass index [BMI] 39.0-39.9, adult; Z99.81 Dependence on supplemental oxygen
CPT/HCPCS: 36415; 36416; 72170; 82948; 85610; 86850; 86900; 86901; 94660; 97161; 97165; C1776; J0171; J0690; J0735; J1100; J1885; J2001; J2250; J2405; J2550; J2704; J2795; J3010; J3370; J3490; J7050; J7060; Q0169

== ENCOUNTER 2018-08-12 12:40 | Inpatient (IN) | payer MEDICARE, OTHER ==
[~2018-08-12] VITALS: Ht 170.2 cm; Wt 112.0 kg
[2018-08-12 13:15] VITALS: BP 128/56
[2018-08-12] MEDS ORDERED: BISACODYL 10 MG SUPP PR PRN (14:25)
[2018-08-12] MEDS ORDERED: ACETAMINOPHEN 325 MG TAB PO PRN (14:25)
[2018-08-12] MEDS ORDERED: LEVOTHYROXINE SODIUM 150 MCG TAB PO SCH (14:25)
--- NOTE | 2018-08-12 14:45 | OT ECF NOTE ---
Type of Note: Initial Note Primary Medical Diagnosis: L TKA Occupational Therapy Evaluation Date: 08-12-18 SUBJECTIVE: Prior Hospitalization: Pt. was on [facility] surgical floor from 08-09-18 to 08-12-18. Prior Level of Function: Walking independently with use of cane. Prior Living Status: Single level house Spouse Assist by family Community Services: Independent Home Accessibility: Stairs with rails All needs on one level Basement in home Tub/shower combination Equipment Owned: Front wheeled walker Cane Toilet riser Tub/shower chair Medical Complications/Past Medical History: Please refer to chart for details. Psychosocial Support: Supportive and daughter (who resides in [place]). Pain Scale (0-10): 6/10 OBJECTIVE: Strength: MMT: Right Left Shoulder Flexion [*] [*] Elbow Flexion [*] [*] Wrist Extension [*] [*] Water Vessel Captain [*] [*] (5= normal, 4= good, 3= fair, 2= poor, 1= trace) ROM: Both upper extremities WFL Sensation: [*] Functional Transfer: Assistive Device: Front wheeled walker Gait belt Transfer Ability: CGA ADL: Upper body dressing: Assistive device: Upper body dressing ability: N/T Lower body dressing: Assistive device: Lower body dressing ability: N/T Toileting: Assistive device: Raised toilet seat Grab rails Toileting ability: CGA Grooming/hygiene: Standing sinkfront Assistive device: Grooming ability: SBA Bathing: Assistive device: Bathing ability: N/T Standardized Assessment: Lito Index of Activities of Daily Living- Pt. scored a 13/20 on this Index upon evaluation. ASSESSMENT: Pt. is a 68 year old female s/p L AMBAR of Dr. Hernandez on 08/09/18. Pt.'s prior level of functioning was I with all activities, ambulating with only the use of a cane. Pt. seeks continued rehab on [facility] to ensure independence with ADL activities and adhering to hip precautions. Problem List/Current Limitations: Pain Decreased WB Decreased activity alida Decreased strength Generalized weakness Short Term Goals: 1. Pt. to perform LB dressing activities with Mod I. 2. Pt. to perform toileting activities with Mod I. 3. Pt. to perform g/h activities, standing sink front, with I. 4. Pt .to improve Lito ADL index score by 2 points. 5. Pt. to perform showering activities with Min A. Retirement Goals: Return home. Patient Goals: Return home with OP therapy Rehabilitation Prognosis: Good Barriers to Discharge: Pain PLAN: The patient will benefit from skilled occupational therapy services 5 times per week for 2 weeks including: Ther ex ADL training Safety training Ther act IADL training Transfer training Adaptive equip training Bed mobility Thank you for this referral. If you have any questions, concerns, or comments about this report or plan, please contact me at . Renetta Sparks, OTR/L PATI
[2018-08-12] MEDS: MAGNESIUM HYDROXIDE* 30ML UDCP PO PRN (15:24)
[2018-08-12] MEDS: PROMETHAZINE HCL 25 MG TAB PO PRN ×2 (15:25→22:21)
[2018-08-12] MEDS ORDERED: HYPROMELLOSE 0.4% LUB 15ML BTL OS PRN (15:25)
[2018-08-12] MEDS: DIAZEPAM 5 MG TAB PO PRN ×2 (15:35→22:21)
--- NOTE | 2018-08-12 15:36 | Consultant Pharmacy Review ---
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 Medication Review Do All Mecications have a Diag: Yes Beers Criteria Medication 2015 Anticholinergics exclude TCAs: Promethazine (12.5 MG Q6 HOURS PRN) Benzodiazapines (long acting): Diazepam (5 mg q6 hours prn) Proton Pump Inhibitors: Lansoprazole (30 mg qday) Other General Cautions Lexicomp Interaction Analysis A = No known interaction C = Monitor therapy X = Avoid combination B = No action needed D = Consider therapy modification Drugs in this analysis: Acetaminophen; Bisacodyl; Clobetasol; Cozaar; DiazePAM; Docusate Sodium (SYN); FML; Levothyroxine; Loratadine; Lortab; Lyrica; Magnesium Hydroxide; MetFORMIN; Norvasc; Prevacid; Promethazine; Restasis; Singulair; Toprol XL; Xarelto * Drug-Drug Interactions * D Bisacodyl Magnesium Hydroxide (Antacids) D DiazePAM (BAND CUTTER Depressants) Lortab (HYDROcodone) D Levothyroxine Magnesium Hydroxide (Magnesium Salts) Depends on Route D Loratadine (BAND CUTTER Depressants) Lortab (HYDROcodone) D Lortab (HYDROcodone) Lyrica (BAND CUTTER Depressants) D Lortab (HYDROcodone) Promethazine (BAND CUTTER Depressants) C DiazePAM (BAND CUTTER Depressants) Loratadine (BAND CUTTER Depressants) C DiazePAM (BAND CUTTER Depressants) Lyrica (BAND CUTTER Depressants) C DiazePAM (BAND CUTTER Depressants) Promethazine (BAND CUTTER Depressants) C Loratadine (Anticholinergic Agents) Promethazine (Anticholinergic Agents) C Loratadine (BAND CUTTER Depressants) Lyrica (BAND CUTTER Depressants) C Loratadine (BAND CUTTER Depressants) Promethazine (BAND CUTTER Depressants) C Lyrica (BAND CUTTER Depressants) Promethazine (BAND CUTTER Depressants) C Magnesium Hydroxide (Magnesium Salts) Norvasc (Calcium Channel Blockers) B Acetaminophen Lortab (Opioid Analgesics) B DiazePAM Magnesium Hydroxide (Antacids) B DiazePAM Toprol XL (Metoprolol) B Levothyroxine (Thyroid Products) Prevacid (Proton Pump Inhibitors) * Acetaminophen Lortab * Disclaimer: Readers are advised that decisions regarding drug therapy must be based on the independent judgment of the clinician, changing information about a drug (eg, as reflected in the literature and bale piler's most current product information), and changing medical practices. * Terms & Conditions // * Disclaimer// * Privacy Policy * Lexicomp on Facebook * Lexicomp on Twitter * Get [employer] [place] 2018 [employer] and its affiliates and/or licensors. All Rights Reserved. * Top of Form 1 * Bottom of Form 1 Pneumococcal Vaccine HX Pneumo Vac ([id number]): Yes (57) HX Pneumo Vac (Pneumovax): Yes (63) ABDIRAHMAN ROSADO Aug 12, 2018 15:36
--- NOTE | 2018-08-12 16:01 | PT ECF NOTE ---
Type of Note: Initial Note Primary Medical Diagnosis: L AMBAR Physical Therapy Evaluation Date: 08/12/18 SUBJECTIVE: Prior Hospitalization: [facility] Prior Level of Function: Pt was independent with functional mobility prior to surgery Prior Living Status: Single level house, Spouse Community Services: No known needs Home Accessibility: 5 Stairs with rails Equipment Owned: Front wheeled walker, Cane, bed that elevates at the head. Medical Complications/Past Medical History: See [employer] Psychosocial Support: Supportive and daughter Pain Scale (0-10): 310 OBJECTIVE: Bed Mobility: Min A sit>supine Assistive device: Bed rail, Head of bed elevated Transfers: CGA Assistive Device: Front wheeled walker Gait: CGA x20' Assistive device: Front wheeled walker ASSESSMENT: Pt presents with decreased independence with functional mobility s/p L TKA. Pt will benefit from skilled PT for functional mobility training in order to increase safety and independence at home. Problem List/Current Limitations: Pain, Decreased activity tolerance, Decreased strength, Generalized weakness Short Term Goals: 1. 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 2. SBA transfers. 3. SBA gait x 150' with RW. 4. Ascend/descend 4 stairs with rail CGA. 5. Independent with hip precautions. Contract Designer Goals: Return home. Patient Goals: Return home Rehabilitation Prognosis: Good Barriers for Discharge: none identified. PLAN: The patient will benefit from skilled physical therapy services 5 times per week for 2 weeks including: Therapeutic Exercise Therapeutic Activities Transfer Training Gait Training Stair Training Manual Therapy ADL's Safety Training Neuromuscular Re-educ. Pt/Caregiver Training Bed Mobility Thank you for this referral. If you have any questions, concerns, or comments about this report or plan, please contact me at . Jannet Bauer, PT, DPT, GCS MTDD
[2018-08-12] MEDS: LANSOPRAZOLE 15 MG CAPCR PO SCH (16:23)
[2018-08-12] MEDS: APAP/HYDROCODONE 325/7.5 TAB PO PRN (16:23)
[2018-08-12] MEDS: metFORMIN HCL 500 MG TAB PO SCH (17:36)
[2018-08-12] MEDS ORDERED: CHOL500025 PO (18:40)
[2018-08-12] MEDS ORDERED: POTA99TA6 PO (18:42)
[2018-08-12] MEDS ORDERED: OMEG-96 PO (18:42)
[2018-08-12] MEDS ORDERED: UBID100C9 PO (18:43)
[2018-08-12] MEDS ORDERED: CYAN50008 (18:44)
[2018-08-12] MEDS ORDERED: PIRO-1 PO (18:46)
[2018-08-12] MEDS: DOCUSATE SODIUM 100 MG CAP PO SCH (20:54)
[2018-08-12] MEDS: PREGABALIN 150 MG CAPSULE PO SCH (20:54)
[2018-08-12] MEDS: cycloSPORINE 0.05% EMUL 1 DROP OU SCH (20:54)
[2018-08-12] MEDS: FLUOROMETHOLONE 0.1% OP SUSP OP SCH (20:54)
[2018-08-12] MEDS: CLOBETASOL PROPIONATE 15 GM TUBE TOP SCH (20:55)
[2018-08-12 22:01] VITALS: Ht 170.2 cm; Wt 112.0 kg
[2018-08-13] MEDS: APAP/HYDROCODONE 325/7.5 TAB PO PRN ×4 (00:12→22:52)
[2018-08-13] MEDS: LEVOTHYROXINE SODIUM 150 MCG TAB PO SCH (05:54)
[2018-08-13 07:37] VITALS: BP 134/75
[2018-08-13] MEDS: metFORMIN HCL 500 MG TAB PO SCH ×3 (08:09→17:31)
[2018-08-13] MEDS: amLODIPine BESYL(*) 2.5 MG TAB PO SCH ×2 (08:10→08:17)
[2018-08-13] MEDS: LORATADINE 10 MG TAB PO SCH (08:10)
[2018-08-13] MEDS: DOCUSATE SODIUM 100 MG CAP PO SCH ×2 (08:10→20:22)
[2018-08-13] MEDS: MONTELUKAST SODIUM 10 MG TAB PO SCH (08:10)
[2018-08-13] MEDS: RIVAROXABAN 10 MG TAB PO SCH (08:10)
[2018-08-13] MEDS: LOSARTAN POTASSIUM 50 MG TAB PO SCH ×2 (08:10→08:16)
[2018-08-13] MEDS: METOPROLOL SUCC XL 50 MG TABCR 50 MG TAB.ER.24H PO SCH ×2 (08:11→08:17)
[2018-08-13] MEDS: PATIENT'S OWN MED OP SCH (08:12)
[2018-08-13] MEDS: cycloSPORINE 0.05% EMUL 1 DROP OU SCH ×2 (08:12→20:22)
[2018-08-13] MEDS: CLOBETASOL PROPIONATE 15 GM TUBE TOP SCH ×2 (08:13→20:22)
[2018-08-13] MEDS: FLUOROMETHOLONE 0.1% OP SUSP OP SCH ×3 (08:13→20:21)
[2018-08-13] MEDS: PROMETHAZINE HCL 25 MG TAB PO PRN ×3 (08:52→22:01)
[2018-08-13] MEDS: MAGNESIUM HYDROXIDE* 30ML UDCP PO PRN (11:41)
[2018-08-13] MEDS: DIAZEPAM 5 MG TAB PO PRN ×2 (13:06→22:01)
--- NOTE | 2018-08-13 14:57 | Medical Nutrition Therapy ---
Nutrition Anthropometrics Height (Inches): 67.00 Height (Calculated Centimeters: 170.884363 Weight (Pounds): 248 Weight (Calculated Kilograms): 112.633 BMI: 38.9 Fabian Nutrition Score: Adequate Fabian Nutrition Risk Score: 19 Dietary Referral Nutrition Risk Factors: Nutrition Risk Comment: Physical Findings Physical Appearance: Obese BMI 30-39 Skin Appearance Skin Appearance: Edema Edema Location Modifier: Left Edema Location: Leg Type of Edema: Degree of Edema: Gastrointestinal Symptoms GI Symtoms: Tube Present: Bowel Sounds: Recent Bowel Pattern: Stool Characteristics: Nutrition/Food History No Significant Nutr. HX Nutritional Diagnosis Nutritional Risk Acuity 4: Good Appetite, Modified Diet Past Medical History: Hx of T2DM, KARLEY, HTN, GERD, hypothyroidism, seasoal allergies. Nutritional Acuity: 4-Low Nutrition Diagnosis: Over-weight/Obesity Nutrition Etiology: Physiological Causes Nutrition Problem/Etiology/Sym: Overweight/Obesity related to Excessive energy intake and Physical inactivity AEB BMI of 38.9 and physical limitations with arthritis resulting in left hip arthroplasty. Energy Requirement: 1840 ([place]-St Jeor: Adjusted BW X 1.4) Adjusted Energy Requirement Re: 75 (Adjusted BW Kg X 1.0) Fluid Requirement: 1840 Diet Type: Diabetic Nutrition Intervention: Cont diet as ordered Food Dislikes: TOMATO ALLERGY Nutrition Monitoring & Eval Nutrition Goals: Eat 50-100% Meal RD Patient Assessment Time: [address] Assessment Type: RD Assessment Patient Nutrition Acuity: 4-Low Follow Up Date: Aug 13, 2018 Nutritional Comment: 08/13/18 Pt transferred to [facility] after Left Total Hip Arthroplasty. Glu 108. Class II obesity with BMI of 38.8. Receiving Diabetes diet and consuming 25 -100% of meals. Follow intake, labs, etc. -SANDY LANE Aug 13, 2018 14:57
[2018-08-13 15:37] VITALS: BP 137/74
[2018-08-13] MEDS: LANSOPRAZOLE 15 MG CAPCR PO SCH (16:49)
[2018-08-13] MEDS: PREGABALIN 150 MG CAPSULE PO SCH (20:22)
[2018-08-14] MEDS: LEVOTHYROXINE SODIUM 150 MCG TAB PO SCH (06:05)
[2018-08-14 07:30] VITALS: BP 132/75
[2018-08-14] MEDS: DIAZEPAM 5 MG TAB PO PRN ×3 (07:35→20:23)
[2018-08-14] MEDS: PROMETHAZINE HCL 25 MG TAB PO PRN ×3 (07:35→20:23)
[2018-08-14] MEDS: APAP/HYDROCODONE 325/7.5 TAB PO PRN ×3 (08:01→20:58)
[2018-08-14] MEDS: cycloSPORINE 0.05% EMUL 1 DROP OU SCH ×2 (08:26→20:23)
[2018-08-14] MEDS: PATIENT'S OWN MED OP SCH (08:26)
[2018-08-14] MEDS: LORATADINE 10 MG TAB PO SCH (08:27)
[2018-08-14] MEDS: CLOBETASOL PROPIONATE 15 GM TUBE TOP SCH ×2 (08:27→20:22)
[2018-08-14] MEDS: metFORMIN HCL 500 MG TAB PO SCH ×4 (08:27→14:00)
[2018-08-14] MEDS: DOCUSATE SODIUM 100 MG CAP PO SCH ×3 (08:28→20:25)
[2018-08-14] MEDS: METOPROLOL SUCC XL 50 MG TABCR 50 MG TAB.ER.24H PO SCH (08:28)
[2018-08-14] MEDS: RIVAROXABAN 10 MG TAB PO SCH (08:28)
[2018-08-14] MEDS: MONTELUKAST SODIUM 10 MG TAB PO SCH (08:28)
[2018-08-14] MEDS: LOSARTAN POTASSIUM 50 MG TAB PO SCH (08:28)
[2018-08-14] MEDS: amLODIPine BESYL(*) 2.5 MG TAB PO SCH (08:28)
[2018-08-14] MEDS: FLUOROMETHOLONE 0.1% OP SUSP OP SCH ×3 (08:30→20:23)
--- NOTE | 2018-08-14 13:39 | Medical Nutrition Therapy ---
Nutrition Anthropometrics Height (Inches): 67.00 Height (Calculated Centimeters: 170.968836 Weight (Pounds): 248 Weight (Calculated Kilograms): 112.633 BMI: 38.9 Fabian Nutrition Score: Adequate Fabian Nutrition Risk Score: 19 Dietary Referral Nutrition Risk Factors: Nutrition Risk Comment: Physical Findings Physical Appearance: Obese BMI 30-39 Skin Appearance Skin Appearance: Edema Edema Location Modifier: Left Edema Location: Leg Type of Edema: Degree of Edema: Gastrointestinal Symptoms GI Symtoms: Tube Present: Bowel Sounds: Recent Bowel Pattern: Stool Characteristics: Nutrition/Food History No Significant Nutr. HX Nutritional Diagnosis Nutritional Risk Acuity 4: Good Appetite, Modified Diet Past Medical History: Hx of T2DM, KARLEY, HTN, GERD, hypothyroidism, seasoal allergies. Nutritional Acuity: 4-Low Nutrition Diagnosis: Over-weight/Obesity Nutrition Etiology: Physiological Causes Nutrition Problem/Etiology/Sym: Overweight/Obesity related to Excessive energy intake and Physical inactivity AEB BMI of 38.9 and physical limitations with arthritis resulting in left hip arthroplasty. Energy Requirement: 1840 ([place]-St Jeor: Adjusted BW X 1.4) Adjusted Energy Requirement Re: 75 (Adjusted BW Kg X 1.0) Fluid Requirement: 1840 Diet Type: Diabetic Nutrition Intervention: Cont diet as ordered Food Dislikes: squash veggies Nutrition Monitoring & Eval Nutrition Goals: Eat 50-100% Meal RD Patient Assessment Time: [address] Assessment Type: RD Assessment Patient Nutrition Acuity: 4-Low Follow Up Date: Aug 16, 2018 Nutritional Comment: 08/13/18 Pt transferred to [facility] after Left Total Hip Arthroplasty. Glu 108. Class II obesity with BMI of 38.8. Receiving Diabetes diet and consuming 25 -100% of meals. Follow intake, labs, etc. -SANDY LANE Aug 14, 2018 13:39
[2018-08-14 16:38] VITALS: BP 127/72
[2018-08-14] MEDS: LANSOPRAZOLE 15 MG CAPCR PO SCH (17:35)
[2018-08-14] MEDS: PREGABALIN 150 MG CAPSULE PO SCH (20:23)
[2018-08-15] MEDS: LEVOTHYROXINE SODIUM 150 MCG TAB PO SCH (06:14)
[2018-08-15 07:30] VITALS: BP 124/70
[2018-08-15] MEDS: metFORMIN HCL 500 MG TAB PO SCH ×3 (08:21→17:43)
[2018-08-15] MEDS: FLUOROMETHOLONE 0.1% OP SUSP OP SCH ×3 (08:23→21:30)
[2018-08-15] MEDS: cycloSPORINE 0.05% EMUL 1 DROP OU SCH ×2 (08:23→21:30)
[2018-08-15] MEDS: CLOBETASOL PROPIONATE 15 GM TUBE TOP SCH ×2 (08:23→21:30)
[2018-08-15] MEDS: DOCUSATE SODIUM 100 MG CAP PO SCH ×2 (08:24→21:30)
[2018-08-15] MEDS: LORATADINE 10 MG TAB PO SCH (08:24)
[2018-08-15] MEDS: amLODIPine BESYL(*) 2.5 MG TAB PO SCH (08:26)
[2018-08-15] MEDS: LOSARTAN POTASSIUM 50 MG TAB PO SCH (08:26)
[2018-08-15] MEDS: MONTELUKAST SODIUM 10 MG TAB PO SCH (08:27)
[2018-08-15] MEDS: RIVAROXABAN 10 MG TAB PO SCH (08:27)
[2018-08-15] MEDS: METOPROLOL SUCC XL 50 MG TABCR 50 MG TAB.ER.24H PO SCH (08:27)
[2018-08-15] MEDS: PATIENT'S OWN MED OP SCH (08:28)
[2018-08-15] MEDS: PROMETHAZINE HCL 25 MG TAB PO PRN ×3 (09:17→22:01)
[2018-08-15] MEDS: DIAZEPAM 5 MG TAB PO PRN ×3 (09:17→21:30)
[2018-08-15] MEDS: APAP/HYDROCODONE 325/7.5 TAB PO PRN ×3 (09:55→22:36)
--- NOTE | 2018-08-15 12:23 | HISTORY AND PHYSICAL ---
DATE OF ADMISSION: August 12, 2018 IDENTIFICATION/CHIEF COMPLAINT The patient is a 68-year-old woman with a chief complaint of left hip pain. HISTORY OF PRESENT ILLNESS The patient has a longstanding history of hip arthritis progressively painful and debilitating, refractory to conservative care. Surgery is indicated to relieve symptoms after failure of nonoperative measures. PAST MEDICAL HISTORY 1. Hypertension, controlled on medication. 2. Sleep apnea, controlled with CPAP. 3. Type 2 diabetes. PAST SURGICAL HISTORY 1. Partial thyroidectomy. 2. Right knee scope. 3. Pneumonia. 4. Hospitalization. 5. Bladder repair. 6. Hemorrhage from hysterectomy. 7. Cholecystectomy. 8. Rib removed. 9. Foot operation. 10. Cartilage removal from the right knee. ALLERGIES MORPHINE, NEXIUM and CHLORINE BLEACH. CURRENT MEDICATIONS 1. Amlodipine 2.5 mg p.o. every day. 2. Metformin 500 mg x5 pills daily. 3. Meclizine 12.5 mg as needed. 4. Lyrica 150 mg p.o. every day. 5. Januvia 100 mg p.o. every day. 6. Losartan 100 mg p.o. every day. 7. Prevacid 30 mg p.o. every day. 8. Synthroid 150 micrograms p.o. every day. SOCIAL HISTORY Negative for tobacco. She smoked until 1996, about 20 years pack/day. She denies alcohol use or abuse. REVIEW OF SYSTEMS Noncontributory. PHYSICAL EXAMINATION GENERAL: This is a healthy female. HEENT: Normocephalic, atraumatic. NECK: Supple. LUNGS: Clear. HEART: Regular. ABDOMEN: Soft. ORTHOPEDIC EXAMINATION Left hip is very stiff with limits if flexion and rotation. Hip girdle strength is normal. Skin envelope is intact. Calves are nontender. Neurovascular function is intact. Radiographs demonstrate end-stage hip arthritis. ASSESSMENT Left hip end-stage degenerative joint disease (DJD) progressively painful and debilitating, refractory to conservative care. PLAN Per patient request, we are going to proceed with total hip arthroplasty. The nature of this procedure, the risks, benefits, the anticipated rehabilitative course were reviewed. Risks of the procedure include but are not limited to , major medical or anesthetic complication, infection, neurovascular injury, blood transfusion, stiffness, scarring, tendon rupture, instability, leg length discrepancy, implant loosening, migration or failure, persistent or recurrent pain, need for additional surgery and other unforeseen. She understands and wishes to proceed. A signed permit is placed in the chart. No guarantees are given or implied. D/T: [id number] SELENA CC: H&P ADDENDUM The above issues are resolving. Patient requires fci care and/or skilled rehabilitation. Patient is ready for transfer to Extended Care. Any change in condition is described below. PATI
--- NOTE | 2018-08-15 13:35 | Medical Nutrition Therapy ---
Nutrition Anthropometrics Height (Inches): 67.00 Height (Calculated Centimeters: 170.687593 Weight (Pounds): 248 Weight (Calculated Kilograms): 112.633 BMI: 38.9 Fabian Nutrition Score: Adequate Fabian Nutrition Risk Score: 19 Dietary Referral Nutrition Risk Factors: Nutrition Risk Comment: Physical Findings Physical Appearance: Obese BMI 30-39 Skin Appearance Skin Appearance: Edema Edema Location Modifier: Left Edema Location: Leg Type of Edema: Degree of Edema: 1+ Gastrointestinal Symptoms GI Symtoms: Tube Present: Bowel Sounds: Recent Bowel Pattern: Stool Characteristics: Nutritional Diagnosis Nutritional Risk Acuity 4: Good Appetite, Modified Diet Past Medical History: Hx of T2DM, KARLEY, HTN, GERD, hypothyroidism, seasoal allergies. Nutritional Acuity: 4-Low Nutrition Diagnosis: Over-weight/Obesity Nutrition Etiology: Physiological Causes Nutrition Problem/Etiology/Sym: Overweight/Obesity related to Excessive energy intake and Physical inactivity AEB BMI of 38.9 and physical limitations with arthritis resulting in left hip arthroplasty. Energy Requirement: 1840 ([place]-St Jeor: Adjusted BW X 1.4) Adjusted Energy Requirement Re: 75 (Adjusted BW Kg X 1.0) Fluid Requirement: 1840 Diet Type: Diabetic Nutrition Intervention: Cont diet as ordered Food Dislikes: squash veggies Nutrition Monitoring & Eval Nutrition Goals: Eat 75-100% Meal Nutrition Follow-Up: Good Intake RD Patient Assessment Time: [address] Assessment Type: RD Re-Assessment Patient Nutrition Acuity: 4-Low Follow Up Date: Aug 23, 2018 Nutritional Comment: 08/13/18 Pt transferred to [facility] after Left Total Hip Arthroplasty. Glu 108. Class II obesity with BMI of 38.8. Receiving Diabetes diet and consuming 25 -100% of meals. Follow intake, labs, etc. -DRT 08/15 Pt cont on diabetic diet. Intake averages 77%. No new wt. BG ranging 108-153. Will cont to monitor. LAINEY THORNTON Aug 15, 2018 13:35
[2018-08-15 15:55] VITALS: BP 139/69
[2018-08-15] MEDS: LANSOPRAZOLE 15 MG CAPCR PO SCH (16:32)
[2018-08-15] MEDS: PREGABALIN 150 MG CAPSULE PO SCH (21:30)
[2018-08-16] MEDS: LEVOTHYROXINE SODIUM 150 MCG TAB PO SCH (06:29)
[2018-08-16 08:00] VITALS: BP 127/68
[2018-08-16] MEDS: MONTELUKAST SODIUM 10 MG TAB PO SCH (08:43)
[2018-08-16] MEDS: LORATADINE 10 MG TAB PO SCH (08:44)
[2018-08-16] MEDS: RIVAROXABAN 10 MG TAB PO SCH (08:44)
[2018-08-16] MEDS: DOCUSATE SODIUM 100 MG CAP PO SCH ×2 (08:44→20:25)
[2018-08-16] MEDS: metFORMIN HCL 500 MG TAB PO SCH ×3 (08:44→17:42)
[2018-08-16] MEDS: cycloSPORINE 0.05% EMUL 1 DROP OU SCH ×2 (08:44→20:24)
[2018-08-16] MEDS: FLUOROMETHOLONE 0.1% OP SUSP OP SCH ×3 (08:45→20:24)
[2018-08-16] MEDS: DIAZEPAM 5 MG TAB PO PRN ×2 (08:50→14:53)
[2018-08-16] MEDS: PATIENT'S OWN MED OP SCH (09:00)
[2018-08-16] MEDS: LOSARTAN POTASSIUM 50 MG TAB PO SCH (09:00)
[2018-08-16] MEDS: METOPROLOL SUCC XL 50 MG TABCR 50 MG TAB.ER.24H PO SCH (09:00)
[2018-08-16] MEDS: CLOBETASOL PROPIONATE 15 GM TUBE TOP SCH ×2 (09:00→20:23)
[2018-08-16] MEDS: amLODIPine BESYL(*) 2.5 MG TAB PO SCH (09:00)
[2018-08-16] MEDS: PROMETHAZINE HCL 25 MG TAB PO PRN ×2 (09:48→19:42)
[2018-08-16] MEDS: APAP/HYDROCODONE 325/7.5 TAB PO PRN ×2 (10:25→20:23)
[2018-08-16] MEDS: LANSOPRAZOLE 15 MG CAPCR PO SCH (17:27)
[2018-08-16 19:50] VITALS: BP 138/73
[2018-08-16] MEDS: PREGABALIN 150 MG CAPSULE PO SCH (20:25)
[2018-08-17] MEDS: LEVOTHYROXINE SODIUM 150 MCG TAB PO SCH (05:30)
[2018-08-17 08:00] VITALS: BP 137/73
[2018-08-17] MEDS: LOSARTAN POTASSIUM 50 MG TAB PO SCH (08:30)
[2018-08-17] MEDS: amLODIPine BESYL(*) 2.5 MG TAB PO SCH (08:31)
[2018-08-17] MEDS: LORATADINE 10 MG TAB PO SCH (08:35)
[2018-08-17] MEDS: RIVAROXABAN 10 MG TAB PO SCH (08:35)
[2018-08-17] MEDS: MONTELUKAST SODIUM 10 MG TAB PO SCH (08:35)
[2018-08-17] MEDS: METOPROLOL SUCC XL 50 MG TABCR 50 MG TAB.ER.24H PO SCH (08:35)
[2018-08-17] MEDS: DOCUSATE SODIUM 100 MG CAP PO SCH ×2 (08:35→21:00)
[2018-08-17] MEDS: metFORMIN HCL 500 MG TAB PO SCH ×3 (08:35→17:36)
[2018-08-17] MEDS: FLUOROMETHOLONE 0.1% OP SUSP OP SCH ×3 (08:36→21:00)
[2018-08-17] MEDS: cycloSPORINE 0.05% EMUL 1 DROP OU SCH ×2 (08:36→21:00)
[2018-08-17] MEDS: PATIENT'S OWN MED OP SCH (09:00)
[2018-08-17] MEDS: CLOBETASOL PROPIONATE 15 GM TUBE TOP SCH ×2 (09:00→21:00)
[2018-08-17] MEDS: PROMETHAZINE HCL 25 MG TAB PO PRN ×3 (09:28→22:04)
[2018-08-17] MEDS: APAP/HYDROCODONE 325/7.5 TAB PO PRN ×3 (09:58→22:27)
--- NOTE | 2018-08-17 15:06 | Hospitalist Progress Note ---
Physical Exam Vital Signs Date Time Temp Pulse Resp B/P (MAP) Pulse Ox O2 Delivery O2 Flow Rate FiO2 08/17/18 09:30 91 Room Air 08/17/18 08:00 98.0 88 16 137/73 (94) 08/16/18 04:14 2.0 08/15/18 10:17 40.0 Intake and Output 08/17/18 07:00 Intake Total 1620 ml Balance 1620 ml Intake Oral 1620 ml # Voids 4 Assessment and Plan Problems: (1) Status post left hip replacement Status: Acute Assessment & Plan: She is on Xarelto for DVT prophylaxis. She does not personally have a history of DVT, but her mother had a spontaneous DVT. [facility]. (2) Type 2 diabetes mellitus Status: Chronic Assessment & Plan: She is on chronic treatment with Metformin and Januvia. Metformin was restarted, but Januvia has still been held secondary to controlled blood sugars. She is on BID blood glucose monitoring and SSI#2, and ADA diet. (3) Hypertension Status: Chronic Assessment & Plan: She is on chronic treatment with Toprol, Losartan, and Amlodipine. These were restarted with hold parameters. (4) GERD (gastroesophageal reflux disease) Status: Chronic Assessment & Plan: She is on chronic treatment with Prevacid. (5) Hypothyroidism Status: Chronic Assessment & Plan: She is on chronic treatment with Synthroid. She will use her own prescription during admission. (6) KARLEY (obstructive sleep apnea) Status: Chronic Assessment & Plan: She is on chronic treatment with CPAP. She brought her own machine to use during admission, but she did require BiPAP immediately after surgery. Recommended patient go to PCP after discharge for followup of KARLEY. Last sleep study 2015. She has been requiring O2 with her CPAP here. (7) Seasonal allergies Status: Chronic Assessment & Plan: She is on chronic treatment with Singulair and Loratadine. Time Spent on Plan of Care: < 30 min ABDIRAHMAN LAO MD Aug 17, 2018 15:06
[2018-08-17] MEDS: LANSOPRAZOLE 15 MG CAPCR PO SCH (17:36)
[2018-08-17 20:20] VITALS: BP 128/66
[2018-08-17] MEDS: PREGABALIN 150 MG CAPSULE PO SCH (21:00)
[2018-08-18] MEDS: LEVOTHYROXINE SODIUM 150 MCG TAB PO SCH (05:59)
[2018-08-18 08:00] VITALS: BP 136/66
[2018-08-18] MEDS: LORATADINE 10 MG TAB PO SCH (08:49)
[2018-08-18] MEDS: metFORMIN HCL 500 MG TAB PO SCH ×3 (08:49→17:07)
[2018-08-18] MEDS: RIVAROXABAN 10 MG TAB PO SCH (08:49)
[2018-08-18] MEDS: DOCUSATE SODIUM 100 MG CAP PO SCH ×2 (08:49→20:45)
[2018-08-18] MEDS: MONTELUKAST SODIUM 10 MG TAB PO SCH (08:49)
[2018-08-18] MEDS: PROMETHAZINE HCL 25 MG TAB PO PRN ×3 (08:50→20:45)
[2018-08-18] MEDS: METOPROLOL SUCC XL 50 MG TABCR 50 MG TAB.ER.24H PO SCH (08:50)
[2018-08-18] MEDS: FLUOROMETHOLONE 0.1% OP SUSP OP SCH ×3 (08:50→20:44)
[2018-08-18] MEDS: CLOBETASOL PROPIONATE 15 GM TUBE TOP SCH ×2 (09:00→20:44)
[2018-08-18] MEDS: LOSARTAN POTASSIUM 50 MG TAB PO SCH (09:00)
[2018-08-18] MEDS: PATIENT'S OWN MED OP SCH (09:00)
[2018-08-18] MEDS: cycloSPORINE 0.05% EMUL 1 DROP OU SCH ×2 (09:00→20:44)
[2018-08-18] MEDS: amLODIPine BESYL(*) 2.5 MG TAB PO SCH (09:00)
[2018-08-18] MEDS: APAP/HYDROCODONE 325/7.5 TAB PO PRN ×3 (09:24→21:13)
[2018-08-18 16:30] VITALS: BP 129/71
[2018-08-18] MEDS: LANSOPRAZOLE 15 MG CAPCR PO SCH (17:07)
[2018-08-18] MEDS: PREGABALIN 150 MG CAPSULE PO SCH (20:45)
[2018-08-18] MEDS: DIAZEPAM 5 MG TAB PO PRN (22:19)
[2018-08-19] MEDS: LEVOTHYROXINE SODIUM 150 MCG TAB PO SCH (06:08)
[2018-08-19 08:00] VITALS: BP 124/63
[2018-08-19] MEDS: CLOBETASOL PROPIONATE 15 GM TUBE TOP SCH ×2 (08:54→09:00)
[2018-08-19] MEDS: metFORMIN HCL 500 MG TAB PO SCH ×3 (08:54→17:34)
[2018-08-19] MEDS: FLUOROMETHOLONE 0.1% OP SUSP OP SCH ×3 (08:55→20:35)
[2018-08-19] MEDS: PATIENT'S OWN MED OP SCH (08:55)
[2018-08-19] MEDS: LORATADINE 10 MG TAB PO SCH (08:56)
[2018-08-19] MEDS: DOCUSATE SODIUM 100 MG CAP PO SCH ×2 (08:56→20:34)
[2018-08-19] MEDS: LOSARTAN POTASSIUM 50 MG TAB PO SCH (08:56)
[2018-08-19] MEDS: METOPROLOL SUCC XL 50 MG TABCR 50 MG TAB.ER.24H PO SCH (08:57)
[2018-08-19] MEDS: MONTELUKAST SODIUM 10 MG TAB PO SCH (08:57)
[2018-08-19] MEDS: cycloSPORINE 0.05% EMUL 1 DROP OU SCH ×2 (08:57→20:34)
[2018-08-19] MEDS: amLODIPine BESYL(*) 2.5 MG TAB PO SCH (08:57)
[2018-08-19] MEDS: RIVAROXABAN 10 MG TAB PO SCH (08:57)
[2018-08-19] MEDS: PROMETHAZINE HCL 25 MG TAB PO PRN ×3 (09:02→23:43)
[2018-08-19] MEDS: APAP/HYDROCODONE 325/7.5 TAB PO PRN ×2 (09:38→18:19)
[2018-08-19 16:23] VITALS: BP 122/62
[2018-08-19] MEDS: LANSOPRAZOLE 15 MG CAPCR PO SCH (17:00)
[2018-08-19] MEDS: PREGABALIN 150 MG CAPSULE PO SCH (20:34)
[2018-08-20] MEDS: APAP/HYDROCODONE 325/7.5 TAB PO PRN ×4 (00:03→21:16)
[2018-08-20] MEDS: LEVOTHYROXINE SODIUM 150 MCG TAB PO SCH (05:37)
[2018-08-20 07:35] VITALS: BP 121/61
[2018-08-20] MEDS: cycloSPORINE 0.05% EMUL 1 DROP OU SCH ×2 (08:23→20:45)
[2018-08-20] MEDS: FLUOROMETHOLONE 0.1% OP SUSP OP SCH ×3 (08:23→20:45)
[2018-08-20] MEDS: metFORMIN HCL 500 MG TAB PO SCH ×3 (08:23→17:18)
[2018-08-20] MEDS: LORATADINE 10 MG TAB PO SCH (08:23)
[2018-08-20] MEDS: RIVAROXABAN 10 MG TAB PO SCH (08:23)
[2018-08-20] MEDS: MONTELUKAST SODIUM 10 MG TAB PO SCH (08:24)
[2018-08-20] MEDS: DOCUSATE SODIUM 100 MG CAP PO SCH ×2 (08:24→20:45)
[2018-08-20] MEDS: PROMETHAZINE HCL 25 MG TAB PO PRN ×3 (08:29→20:45)
[2018-08-20] MEDS: CLOBETASOL PROPIONATE 15 GM TUBE TOP SCH ×2 (09:00→20:45)
[2018-08-20] MEDS: METOPROLOL SUCC XL 50 MG TABCR 50 MG TAB.ER.24H PO SCH (09:00)
[2018-08-20] MEDS: PATIENT'S OWN MED OP SCH (09:00)
[2018-08-20] MEDS: LOSARTAN POTASSIUM 50 MG TAB PO SCH (09:00)
[2018-08-20] MEDS: amLODIPine BESYL(*) 2.5 MG TAB PO SCH (09:00)
[2018-08-20 16:50] VITALS: BP 120/74
[2018-08-20] MEDS: LANSOPRAZOLE 15 MG CAPCR PO SCH (17:17)
[2018-08-20] MEDS: PREGABALIN 150 MG CAPSULE PO SCH (20:45)
[2018-08-21] MEDS: PROMETHAZINE HCL 25 MG TAB PO PRN ×4 (03:03→21:31)
[2018-08-21] MEDS: APAP/HYDROCODONE 325/7.5 TAB PO PRN ×4 (03:33→22:02)
[2018-08-21] MEDS: LEVOTHYROXINE SODIUM 150 MCG TAB PO SCH (06:30)
[2018-08-21 07:44] VITALS: BP 116/58
[2018-08-21] MEDS: DOCUSATE SODIUM 100 MG CAP PO SCH ×2 (08:38→21:31)
[2018-08-21] MEDS: RIVAROXABAN 10 MG TAB PO SCH (08:38)
[2018-08-21] MEDS: LORATADINE 10 MG TAB PO SCH (08:38)
[2018-08-21] MEDS: metFORMIN HCL 500 MG TAB PO SCH ×3 (08:38→17:06)
[2018-08-21] MEDS: LOSARTAN POTASSIUM 50 MG TAB PO SCH (08:39)
[2018-08-21] MEDS: MONTELUKAST SODIUM 10 MG TAB PO SCH (08:39)
[2018-08-21] MEDS: amLODIPine BESYL(*) 2.5 MG TAB PO SCH (08:40)
[2018-08-21] MEDS: METOPROLOL SUCC XL 50 MG TABCR 50 MG TAB.ER.24H PO SCH (08:40)
[2018-08-21] MEDS: cycloSPORINE 0.05% EMUL 1 DROP OU SCH ×2 (08:41→21:31)
[2018-08-21] MEDS: FLUOROMETHOLONE 0.1% OP SUSP OP SCH ×3 (08:42→21:31)
[2018-08-21] MEDS: PATIENT'S OWN MED OP SCH (08:42)
[2018-08-21] MEDS: CLOBETASOL PROPIONATE 15 GM TUBE TOP SCH ×2 (08:43→21:32)
[2018-08-21] MEDS: LANSOPRAZOLE 15 MG CAPCR PO SCH (17:06)
[2018-08-21 17:25] VITALS: BP 125/74
[2018-08-21] MEDS: PREGABALIN 150 MG CAPSULE PO SCH (21:31)
[2018-08-21] MEDS: DIAZEPAM 5 MG TAB PO PRN (22:02)
[2018-08-22] MEDS: PROMETHAZINE HCL 25 MG TAB PO PRN ×4 (03:38→21:38)
[2018-08-22] MEDS: APAP/HYDROCODONE 325/7.5 TAB PO PRN ×4 (04:14→22:08)
[2018-08-22] MEDS: LEVOTHYROXINE SODIUM 150 MCG TAB PO SCH (06:26)
[2018-08-22 08:30] VITALS: BP 125/59
[2018-08-22] MEDS: MONTELUKAST SODIUM 10 MG TAB PO SCH (08:33)
[2018-08-22] MEDS: DOCUSATE SODIUM 100 MG CAP PO SCH ×2 (08:33→21:38)
[2018-08-22] MEDS: RIVAROXABAN 10 MG TAB PO SCH (08:33)
[2018-08-22] MEDS: LORATADINE 10 MG TAB PO SCH (08:33)
[2018-08-22] MEDS: metFORMIN HCL 500 MG TAB PO SCH ×3 (08:33→17:21)
[2018-08-22] MEDS: cycloSPORINE 0.05% EMUL 1 DROP OU SCH ×2 (08:35→21:38)
[2018-08-22] MEDS: FLUOROMETHOLONE 0.1% OP SUSP OP SCH ×3 (08:35→21:38)
[2018-08-22] MEDS: PATIENT'S OWN MED OP SCH (09:00)
[2018-08-22] MEDS: METOPROLOL SUCC XL 50 MG TABCR 50 MG TAB.ER.24H PO SCH (09:00)
[2018-08-22] MEDS: LOSARTAN POTASSIUM 50 MG TAB PO SCH (09:00)
[2018-08-22] MEDS: amLODIPine BESYL(*) 2.5 MG TAB PO SCH (09:00)
[2018-08-22 15:10] VITALS: BP 116/72
--- NOTE | 2018-08-22 16:36 | Medical Nutrition Therapy ---
Nutrition Anthropometrics Height (Inches): 67.00 Height (Calculated Centimeters: 170.781415 Weight (Pounds): 247 Weight (Calculated Kilograms): 112.037 BMI: 38.9 Fabian Nutrition Score: Adequate Fabian Nutrition Risk Score: 19 Dietary Referral Nutrition Risk Factors: Nutrition Risk Comment: Physical Findings Physical Appearance: Obese BMI 30-39 Skin Appearance Skin Appearance: Edema Edema Location Modifier: Left Edema Location: Leg Type of Edema: Degree of Edema: 1+ Gastrointestinal Symptoms GI Symtoms: Tube Present: Bowel Sounds: Recent Bowel Pattern: Stool Characteristics: Nutritional Diagnosis Nutritional Risk Acuity 4: Good Appetite, Modified Diet Past Medical History: Hx of T2DM, KARLEY, HTN, GERD, hypothyroidism, seasoal allergies. Nutritional Acuity: 4-Low Nutrition Diagnosis: Over-weight/Obesity Nutrition Etiology: Physiological Causes Nutrition Problem/Etiology/Sym: Overweight/Obesity related to Excessive energy intake and Physical inactivity AEB BMI of 38.9 and physical limitations with arthritis resulting in left hip arthroplasty. Energy Requirement: 1840 ([place]-St Jeor: Adjusted BW X 1.4) Adjusted Energy Requirement Re: 75 (Adjusted BW Kg X 1.0) Fluid Requirement: 1840 Diet Type: Diabetic Nutrition Intervention: Cont diet as ordered Food Dislikes: squash veggies Nutrition Monitoring & Eval Nutrition Goals: Eat 75-100% Meal Nutrition Follow-Up: Good Intake RD Patient Assessment Time: [address] Assessment Type: RD Re-Assessment Patient Nutrition Acuity: 4-Low Follow Up Date: Aug 30, 2018 Nutritional Comment: 08/13/18 Pt transferred to [facility] after Left Total Hip Arthroplasty. Glu 108. Class II obesity with BMI of 38.8. Receiving Diabetes diet and consuming 25 -100% of meals. Follow intake, labs, etc. -DRT 08/15 Pt cont on diabetic diet. Intake averages 77%. No new wt. BG ranging 108-153. Will cont to monitor. BK 08/22 Pt cont on diabetic diet. Intake averages 80%. BG ranign 101-152 past week. Wt stable. Will cont to monitor. LAINEY THORNTON Aug 22, 2018 16:36
[2018-08-22] MEDS: LANSOPRAZOLE 15 MG CAPCR PO SCH (17:21)
[2018-08-22] MEDS: PREGABALIN 150 MG CAPSULE PO SCH (21:38)
[2018-08-22] MEDS: DIAZEPAM 5 MG TAB PO PRN (21:38)
[2018-08-22] MEDS: CLOBETASOL PROPIONATE 15 GM TUBE TOP SCH (21:38)
[2018-08-23] MEDS: PROMETHAZINE HCL 25 MG TAB PO PRN ×4 (03:49→22:43)
[2018-08-23] MEDS: APAP/HYDROCODONE 325/7.5 TAB PO PRN ×5 (04:22→23:26)
[2018-08-23] MEDS: LEVOTHYROXINE SODIUM 150 MCG TAB PO SCH (06:25)
[2018-08-23 08:00] VITALS: BP 131/60
[2018-08-23] MEDS: FLUOROMETHOLONE 0.1% OP SUSP OP SCH ×3 (08:41→20:31)
[2018-08-23] MEDS: RIVAROXABAN 10 MG TAB PO SCH (08:41)
[2018-08-23] MEDS: DOCUSATE SODIUM 100 MG CAP PO SCH ×2 (08:41→20:32)
[2018-08-23] MEDS: MONTELUKAST SODIUM 10 MG TAB PO SCH (08:41)
[2018-08-23] MEDS: metFORMIN HCL 500 MG TAB PO SCH ×3 (08:41→17:28)
[2018-08-23] MEDS: cycloSPORINE 0.05% EMUL 1 DROP OU SCH ×2 (08:41→20:30)
[2018-08-23] MEDS: LORATADINE 10 MG TAB PO SCH (08:41)
[2018-08-23] MEDS: LOSARTAN POTASSIUM 50 MG TAB PO SCH (09:00)
[2018-08-23] MEDS: amLODIPine BESYL(*) 2.5 MG TAB PO SCH (09:00)
[2018-08-23] MEDS: PATIENT'S OWN MED OP SCH (09:00)
[2018-08-23] MEDS: METOPROLOL SUCC XL 50 MG TABCR 50 MG TAB.ER.24H PO SCH (09:00)
[2018-08-23 16:25] VITALS: BP 124/76
[2018-08-23] MEDS: LANSOPRAZOLE 15 MG CAPCR PO SCH (16:35)
[2018-08-23] MEDS: PREGABALIN 150 MG CAPSULE PO SCH (20:31)
[2018-08-23] MEDS: CLOBETASOL PROPIONATE 15 GM TUBE TOP SCH (20:32)
[2018-08-24] MEDS: PROMETHAZINE HCL 25 MG TAB PO PRN ×2 (04:49→11:03)
[2018-08-24] MEDS: APAP/HYDROCODONE 325/7.5 TAB PO PRN ×2 (05:18→11:26)
[2018-08-24] MEDS: LEVOTHYROXINE SODIUM 150 MCG TAB PO SCH (05:18)
[2018-08-24 08:00] VITALS: BP 126/66
[2018-08-24] MEDS: RIVAROXABAN 10 MG TAB PO SCH (08:45)
[2018-08-24] MEDS: LORATADINE 10 MG TAB PO SCH (08:45)
[2018-08-24] MEDS: metFORMIN HCL 500 MG TAB PO SCH ×2 (08:45→12:43)
[2018-08-24] MEDS: DOCUSATE SODIUM 100 MG CAP PO SCH (08:45)
[2018-08-24] MEDS: MONTELUKAST SODIUM 10 MG TAB PO SCH (08:45)
[2018-08-24] MEDS: FLUOROMETHOLONE 0.1% OP SUSP OP SCH ×2 (08:46→14:00)
[2018-08-24] MEDS: cycloSPORINE 0.05% EMUL 1 DROP OU SCH (08:46)
[2018-08-24] MEDS: LOSARTAN POTASSIUM 50 MG TAB PO SCH (08:58)
[2018-08-24] MEDS: METOPROLOL SUCC XL 50 MG TABCR 50 MG TAB.ER.24H PO SCH (08:59)
[2018-08-24] MEDS: amLODIPine BESYL(*) 2.5 MG TAB PO SCH (08:59)
[2018-08-24] MEDS: PATIENT'S OWN MED OP SCH (09:00)
--- NOTE | 2018-08-24 11:11 | OT ECF NOTE ---
Type of Note: Discharge Note Primary Medical Diagnosis: L TKA Occupational Therapy Evaluation Date: 08-12-18, discharge to home 08-24-18. SUBJECTIVE: Prior Hospitalization: Pt. was on [facility] surgical floor from 08-09-18 to 08-12-18. Prior Level of Function: Walking independently with use of cane. Prior Living Status: Single level house Spouse Assist by family Community Services: Independent Home Accessibility: Stairs with rails All needs on one level Basement in home Tub/shower combination Equipment Owned: Front wheeled walker Cane Toilet riser Tub/shower chair walker tray Medical Complications/Past Medical History: Please refer to chart for details. Psychosocial Support: Supportive and daughter (who resides in [place]). 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 Officer [*] [*] (5= normal, 4= good, 3= fair, 2= poor, 1= trace) ROM: Both upper extremities WFL Functional Transfer: Assistive Device: Front wheeled walker Gait belt Transfer Ability: Mod I ADL: Upper body dressing: Assistive device: Upper body dressing ability: Mod I Lower body dressing: Assistive device: Chopped Strand Operator, sock aide Lower body dressing ability: Mod I Toileting: Assistive device: Raised toilet seat Grab rails Toileting ability: Mod I Grooming/hygiene: Standing sinkfront Assistive device: Grooming ability: I Bathing: Assistive device: Bath chair Bathing ability: Min A Standardized Assessment: Lito Index of Activities of Daily Living- Pt. scored a 13/20 on this Index upon evaluation. Pt. scored 19/20 on this Index upon discharge to home. ASSESSMENT: Pt. is a 68 year old female s/p L AMBAR of Dr. Hernandez on 08/09/18. Pt.'s prior level of functioning was I with all activities, ambulating with only the use of a cane. Pt. seeks continued rehab on [facility] to ensure independence with ADL activities and adhering to hip precautions. Problem List/Current Limitations: Pain Decreased WB Decreased activity alida Decreased strength Generalized weakness Short Term Goals: 1. Pt. to perform LB dressing activities with Mod I. Goal met. 2. Pt. to perform toileting activities with Mod I. Goal met. 3. Pt. to perform g/h activities, standing sink front, with I. Goal met. 4. Pt .to improve Lito ADL index score by 2 points. Goal met. 5. Pt. to perform showering activities with Min A. Goal met. Halfway Goals: Return home. Patient Goals: Return home with OP therapy Rehabilitation Prognosis: Good Barriers to Discharge: Pain PLAN: The patient will d/c to home with care. Thank you for this referral. If you have any questions, concerns, or comments about this report or plan, please contact me at . Renetta Sparks OTR/Trinh KRUEGER
[2018-08-24] MEDS ORDERED: PROM-110 PO (13:38)
[2018-08-24] MEDS ORDERED: METF-450 PO ×2 (13:40)
--- NOTE | 2018-08-24 14:01 | Hospitalist Progress Note ---
Subjective Progress Notes Subjective She has no complaints today. She reports she is ready to go home. She has been ambulating well. Patient Complains of: Cardiovascular: No: Chest Pain Respiratory: No: Shortness of Breath Physical Exam Vital Signs Date Time Temp Pulse Resp B/P (MAP) Pulse Ox O2 Delivery O2 Flow Rate FiO2 08/24/18 13:39 100 Room Air 08/24/18 08:00 97.6 77 16 126/66 (86) Intake and Output 08/24/18 06:59 Intake Total 1080 ml Balance 1080 ml Intake Oral 1080 ml # Voids 1 General Appearance: Alert, Awake, No Acute Distress, Afebrile Neuro: No Gross deficits Cardiovascular: Regular Rate and Rhythm Respiratory: No Respiratory Distress, Clear to Auscultation GI: Soft and Non-Tender Extremities: Warm, Perfused; No Edema Psych: Alert & Oriented X3, Appropriate Mood & Affect Assessment and Plan Problems: (1) Status post left hip replacement Status: Acute Assessment & Plan: She has been on Xarelto for DVT prophylaxis. She does not personally have a history of DVT, but her mother had a spontaneous DVT. She did complete two weeks of Xarelto during admission on ECF. (2) Type 2 diabetes mellitus Status: Chronic Assessment & Plan: She is on chronic treatment with Metformin and Januvia. Metformin was restarted, but Januvia has still been held secondary to controlled blood sugars with ADA diet and Metformin. She has been on BID blood glucose monitoring and SSI#2, and ADA diet. She will resume Januvia when she returns home and her sugars increase. She will follow up with PCP next week. (3) Hypertension Status: Chronic Assessment & Plan: She is on chronic treatment with Toprol, Losartan, and Amlodipine. These were restarted with hold parameters, but the patient did not reach parameters high enough to give blood pressure medications. She will not resume her blood pressure medications, until she has follow up with Dr. Hebert. Her systolic blood pressure has been 120's without treatment. She has not had any tachycardia or elevated blood pressures during admission. (4) GERD (gastroesophageal reflux disease) Status: Chronic Assessment & Plan: She is on chronic treatment with Prevacid. (5) Hypothyroidism Status: Chronic Assessment & Plan: She is on chronic treatment with Synthroid. Continue. (6) KARLEY (obstructive sleep apnea) Status: Chronic Assessment & Plan: She is on chronic treatment with CPAP. She brought her own machine to use during admission, but she did require BiPAP immediately after surgery. She has been requiring Oxygen bleed-in with her CPAP here. She will have order sent to [facility] for continued oxygen with CPAP at night. (7) Seasonal allergies Status: Chronic Assessment & Plan: She is on chronic treatment with Singulair and Loratadine. Copies to: HERO HEBERT DO ; PR[facility]CILL[facility] WE[facility] Aug 24, 2018 14:00
--- NOTE | 2018-08-31 11:41 | PT ECF NOTE ---
Type of Note: Discharge Note Primary Medical Diagnosis: L) AMBAR Physical Therapy Evaluation Date: 08/12/18 SUBJECTIVE: Prior Hospitalization: [facility] Prior Level of Function: Pt was independent with functional mobility prior to surgery Prior Living Status: Single level house, Spouse Community Services: No known needs Home Accessibility: 5 Stairs with rails Equipment Owned: Front wheeled walker, Cane, bed that elevates at the head. Medical Complications/Past Medical History: See [employer] Psychosocial Support: Supportive and daughter Pain Scale (0-10): 10 OBJECTIVE: Bed Mobility: SBA Assistive device: Head of bed elevated Transfers: SBA Assistive Device: Front wheeled walker Gait: SBA x250' Assistive device: Front wheeled walker ASSESSMENT: Pt demos improvement and goals met for functional household mobility. Pt would benefit from further rehab with [facility] to improved indep with balance and strengthening to progress to community mobility tolerance. Short Term Goals: (Met) 1. 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 2. SBA transfers. 3. SBA gait x 150' with RW. 4. Ascend/descend 4 stairs with rail CGA. 5. Independent with hip precautions. Artifacts Conservator Goals: Return home. Patient Goals: Return home Rehabilitation Prognosis: Good Barriers for Discharge: none identified. PLAN: Pt to d/c home with [facility] services through [facility]. Thank you for this referral. If you have any questions, concerns, or comments about this report or plan, please contact me at . A. Rika Moore, PT, MPT, OMS MARIAHD
--- NOTE | 2018-09-06 18:44 | DISCHARGE SUMMARY ---
DATE OF DISCHARGE: August 24, 2018 REASON FOR ADMISSION Patient is status post hip arthroplasty, slow to mobilize, admitted to the extended care facility for ongoing safety and mobility training prior to discharge home. HOSPITAL COURSE Patient makes slow, steady progress in the ECF. Her wound dries up. She has no drainage at the time of discharge. [place] are removed and Steri-Strips applied. Eventually at the time of discharge, she is cleared by Therapy for safety and mobility, and at the time, her wound condition is benign. She is comfortable while on p.o. pain medication. She is voiding and stooling normally. DISPOSITION Discharged home. Follow up with Dr. Hernandez in [facility]. DISCHARGE MEDICATIONS 1. Preop home medications in usual dose. 2. Aspirin 325 mg p.o. q. day times one month for additional DVT prophylaxis, having completed her Xarelto. 3. Hydrocodone for pain. DIET Ad pb. CONDITION ON DISCHARGE Stable. DISCHARGE INSTRUCTIONS Posterior hip precautions. Outpatient PT per protocol. Weightbearing as tolerated with assistive devices. Call immediately for fevers, chills, wound problems, uncontrolled pain, or other concerns. PATI
== END 2018-08-24 14:15 | disposition home health service (06) | DRG 561 ==
LOC: ECF 12:40
PROVIDERS: ADMIT Orthopaedic Surgery; ATTEND Orthopaedic Surgery
PROC: 5A09357 Assistance with Respiratory Ventilation, Less than 24 Consecutive Hours, Continuous Positive Airway Pressure (ICD-10-PCS; principal; 2018-08-13)
DX: Z47.1 Aftercare following joint replacement surgery (principal); Z96.642 Presence of left artificial hip joint; E11.9 Type 2 diabetes mellitus without complications; E03.9 Hypothyroidism, unspecified; K21.9 Gastro-esophageal reflux disease without esophagitis; I10 Essential (primary) hypertension; G47.33 Obstructive sleep apnea (adult) (pediatric); J30.2 Other seasonal allergic rhinitis; Z88.5 Allergy status to narcotic agent; Z66 Do not resuscitate; Z88.8 Allergy status to other drugs, medicaments and biological substances; Z79.84 Long term (current) use of oral hypoglycemic drugs; Z87.891 Personal history of nicotine dependence
CPT/HCPCS: 36416; 82948; 94660; 97161; 97165; Q0169

== ENCOUNTER → 2018-09-02 | Outpatient (CLI) | payer MEDICARE, OTHER ==
[2018-08-12 22:01] VITALS: BMI 38.8
[~2018-09-02] MED LIST changes: +CHOL500025 PO; +CYAN50008; +METF-450 PO; +OMEG-96 PO; +PROM-110 PO
--- NOTE | 2018-09-02 15:09 | RADIOLOGY IMAGING REPORT ---
FACILITY: [facility] PATIENT NAME: Christine Waddell : 1950 MR: [id number] V: [id number] EXAM DATE: ORDERING PHYSICIAN: MAURISIO MARTIN TECHNOLOGIST: [place] [facility] [place]: Christine Waddell : 1950 Visit/Account:[id number] Date of Sevice: 09/02/2018 Exam type: VENOUS DOPP LOW LEFT EXTREMITY History: Left hip surgery 08/09/2018 with swollen left knee Comparison: None. Findings: The left lower extremity veins were imaged including the left common femoral vein, greater saphenous vein, superficial femoral vein, popliteal vein, posterior tibial vein and peroneal vein revealing no evidence of intraluminal thrombi. The veins were compressible and demonstrated augmentation. Incide ntally noted is soft tissue edema adjacent to the left knee IMPRESSION: 1. No sonographic evidence DVT involving the left lower extremity veins Report Dictated By: Selena Jimenez MD at 09/02/2018 3:02 PM Report E-Signed By: Selena Jimenez MD at 09/02/2018 3:05 PM WSN:[id number]
== END ==
LOC: US 14:04
PROVIDERS: ATTEND Orthopaedic Surgery
DX: R22.42 Localized swelling, mass and lump, left lower limb (principal)

== ENCOUNTER → 2018-12-28 | Outpatient (CLI) | payer MEDICARE, OTHER ==
[2018-08-12 22:01] VITALS: BMI 38.8
[~2018-12-28] MED LIST changes: +ESTR1POW41 MC; -LOSA100T69 PO; +LOSA100T75 PO
--- NOTE | 2018-12-28 18:59 | RADIOLOGY IMAGING REPORT ---
FACILITY: [facility] [place] PATIENT NAME: THAI TREVIÑO : [id number] MR: [id number] V: [id number] EXAM DATE: [id number] ORDERING PHYSICIAN: HERO MONROY TECHNOLOGIST: Laurita Betancourt PROCEDURE:BILATERAL DIGITAL SCREENING MAMMOGRAM WITH CAD ASSISTED INTERPRETATION & 3D TOMOSYNTHESIS COMPARISON:Prior mammograms 11/12/2017 back to 08/25/2013. Family history: Great maternal aunt. INDICATIONS:SCREENING FINDINGS: . Scattered fibroglandular tissue. There are no mass lesions, clusters of suspicious microcalcifications or architectural distortions. No interval change in the appearance of the mammogram when compared to the previous studies. DIAGNOSTIC CATEGORY 1--NEGATIVE. RECOMMENDATIONS: ROUTINE MAMMOGRAM AND CLINICAL EVALUATION. IMPRESSION: BIRADS 1: Negative. Dictated by: Oliverio Butt M.D. on 12/28/2018 at 14:56 Transcribed by: NAZIA on 12/28/2018 at 15:15 Approved by: Oliverio Butt M.D. on 12/28/2018 at 18:58 [facility]
== END ==
LOC: MAMO 01:27
PROVIDERS: ATTEND Family Medicine
DX: Z12.31 Encounter for screening mammogram for malignant neoplasm of breast (principal)
CPT/HCPCS: 77063; 77067

== ENCOUNTER → 2019-01-05 | Outpatient (CLI) | payer MEDICARE, OTHER ==
[2018-08-12 22:01] VITALS: BMI 38.8
[2019-01-05 09:35] LABS: LDL CHOLESTEROL 120 mg/dl
== END ==
LOC: LAB 07:59
PROVIDERS: ATTEND Family Medicine
DX: I10 Essential (primary) hypertension (principal); E78.5 Hyperlipidemia, unspecified; E03.9 Hypothyroidism, unspecified; E11.65 Type 2 diabetes mellitus with hyperglycemia
CPT/HCPCS: 36415; 82040; 82043; 82247; 82310; 82374; 82435; 82465; 82565; 82947; 83036; 83718; 84075; 84132; 84155; 84295; 84443; 84450; 84460; 84478; 84520

== ENCOUNTER → 2019-01-11 | Outpatient (CLI) | payer MEDICARE, OTHER ==
[2018-08-12 22:01] VITALS: BMI 38.8
== END ==
LOC: LAB 14:20
PROVIDERS: ATTEND Family Medicine
DX: E83.52 Hypercalcemia (principal)
CPT/HCPCS: 36415; 82310; 83970

== ENCOUNTER → 2019-02-23 | Outpatient (CLI) | payer MEDICARE, OTHER ==
[2018-08-12 22:01] VITALS: BMI 38.8
[~2019-02-23] MED LIST changes: +FLUC150T40 PO
== END ==
LOC: LAB 09:10
PROVIDERS: ATTEND Family Medicine
DX: E03.9 Hypothyroidism, unspecified (principal)
CPT/HCPCS: 36415; 84443

== ENCOUNTER → 2019-07-03 | Outpatient (CLI) | payer MEDICARE, OTHER ==
[2018-08-12 22:01] VITALS: BMI 38.8
[2019-07-03 09:02] LABS: LDL CHOLESTEROL 108 mg/dl
== END ==
LOC: LAB 08:08
PROVIDERS: ATTEND Family Medicine
DX: E78.5 Hyperlipidemia, unspecified (principal); I10 Essential (primary) hypertension; E11.9 Type 2 diabetes mellitus without complications; E03.9 Hypothyroidism, unspecified
CPT/HCPCS: 36415; 82040; 82043; 82247; 82310; 82374; 82435; 82465; 82565; 82947; 83036; 83718; 84075; 84132; 84155; 84295; 84443; 84450; 84460; 84478; 84520